=== PATIENT | male | born 1960 | race Hispanic/Latino ===

== ENCOUNTER 2017-11-19 15:46 | Emergency (ER) | payer SELFPAY ==
[~2017-11-19] VITALS: Ht 172.7 cm; Wt 108.9 kg
[~2017-11-19 15:46] MED LIST: AMLODIPINE BESYL5 MG PO; ATORVASTATIN CA20 MG PO; CARVEDILOL25 MG PO; CLOPIDOGREL75 MG PO; ELIQUIS PO; FUROSEMIDE40 MG PO; LEVEMIR100 UNIT/1 SQ; LOSARTAN POTASS25 MG PO; METHOCARBAMOL750 MG PO; NOVOLOG100 UNITS1 SQ; TRADJENTA5 MG PO
--- OUTSIDE RECORDS SUMMARY | 2017-11-19 15:49 | XMS REPORT ---
Author Author [facility] Address Unknown Phone Unavailable Care Team Providers Care Professor Of Architecture Name Role Phone Unavailable Unavailable Problems This patient has no known problems. Allergies, Adverse Reactions, Alerts This patient has no known allergies or adverse reactions. Medications This patient has no known medications. Encounters Start Date/Time End Date/Time Encounter Type Admission Type Attending [facility] Care Department Encounter ID 2017-07-09 00:00:00 2017-07-09 00:00:00 Outpatient [facility] [id number] 2017-06-28 00:00:00 2017-06-28 00:00:00 Outpatient [facility] [id number] 2017-06-22 00:00:00 2017-06-22 00:00:00 Outpatient [facility] [id number] 2017-06-15 00:00:00 2017-06-15 00:00:00 Outpatient [facility] [id number] 2017-06-14 09:20:42 2017-06-14 09:20:42 Outpatient [facility] [id number] 2017-06-14 07:55:26 2017-06-14 07:55:26 Outpatient [facility] [id number]
[2017-11-19 17:21] LABS: STREPTOCOCCUS GRP A ANTIGEN NEGATIVE (NEGATIVE)
[2017-11-19 17:38] LABS: INFLUENZAE A&B ANTIGEN (RAPID) NEGATIVE (NEGATIVE)
--- NOTE | 2017-11-19 18:04 | Diagnostic Imaging Report ---
PROCEDURE: Frontal and lateral views of the chest. COMPARISON: Chest radiograph 04/26/2017 INDICATIONS: COUGH, SHORTNESS OF BREATH FINDINGS: Lines/tubes: None. Lungs: The lungs are well inflated and clear. There is no evidence of pneumonia or pulmonary edema. Pleura: There is no pleural effusion or pneumothorax. Heart and mediastinum: The heart and the mediastinum are normal. Bones: No acute bony abnormality. Lower cervical fusion hardware. IMPRESSION: No acute cardiopulmonary disease. Dictated by: Lionel Monaco M.D. on 11/19/2017 at 18:03 Electronically approved by: Lionel Monaco M.D. on 11/19/2017 at 18:03
== END 2017-11-19 19:09 | disposition home or self-care (01) ==
LOC: ER 15:46
DX: R50.9 Fever, unspecified (principal); R05 Cough; J20.9 Acute bronchitis, unspecified; E11.9 Type 2 diabetes mellitus without complications; I51.9 Heart disease, unspecified
CPT/HCPCS: 71046; 83518; 87070; 87400; 99282

== ENCOUNTER 2018-11-28 14:34 | Inpatient (IN) | payer SELFPAY ==
[~2018-11-28] VITALS: Ht 172.7 cm; Wt 97.1 kg
[2018-11-28 15:18] LABS: INR 1.09; PROTHROMBIN TIME 14.6 seconds (11.9-14.5)
[2018-11-28 15:25] LABS: BASOPHILS % 0.1 % (0.0-1.0); EOSINOPHILS # (AUTO) 0.2 (0.0-0.4); EOSINOPHILS % 3.2 % (0.0-6.0); HEMATOCRIT 27.2 % (38.2-49.6); HEMOGLOBIN 9.2 g/dL (14.0-18.0); LYMPHOCYTES # (AUTO) 1.1 (1.0-3.2); LYMPHOCYTES % 15.1 % (18.0-39.1); MEAN CORPUSCULAR HEMOGLOBIN 28.8 pg (28-32); MEAN CORPUSCULAR HGB CONC 33.8 g/dL (31-35); MONOCYTES # (AUTO) 0.5 (0.2-0.8); MONOCYTES % 7.6 % (4.4-11.3); NEUTROPHILS # (AUTO) 5.1 (2.1-6.9); NEUTROPHILS % 73.4 % (38.7-80.0); PLATELET COUNT 163 x10e3/uL (140-360); RED CELL DISTRIBUTION WIDTH 14.2 % (11.7-14.4)
[2018-11-28 15:27] LABS: ALBUMIN 3.4 g/dL (3.5-5.0); ALBUMIN/GLOBULIN RATIO 1.1 (0.8-2.0); ANION GAP 13.6 mmol/L (8-16); CALCIUM 8.7 mg/dL (8.4-10.2); CREATININE, SERUM 5.75 mg/dL (0.72-1.25); POTASSIUM 4.6 mmol/L (3.5-5.1)
[2018-11-28] MEDS ORDERED: ASPIR 8181 MG PO (15:39)
[2018-11-28] MEDS ORDERED: VITAMIN D1000 UNI1 PO (15:39)
[2018-11-28] MEDS ORDERED: GLIPIZIDE5 MG PO (15:39)
[2018-11-28] MEDS ORDERED: SODIUM BICARBO650 MG PO (15:39)
--- NOTE | 2018-11-28 16:04 | Diagnostic Imaging Report ---
EXAM: CHEST 2 VIEWS, PA and lateral DATE: 11/28/2018 Time stamp on exam: 3:02 PM INDICATION: Shortness of breath COMPARISON: None FINDINGS: LINES/TUBES: None LUNGS: No consolidations or edema. PLEURA: No effusions or pneumothorax. HEART AND MEDIASTINUM: Normal size and contour. BONES AND SOFT TISSUES: Mild degenerative changes of the spine. Plate overlies the lower cervical spine. IMPRESSION: No acute thoracic abnormality. Signed by: Dr. Ronak Monique DO on 11/28/2018 4:01 PM
[2018-11-28 16:44] LABS: PARTIAL THROMBOPLASTIN TIME 33.2 seconds (23.8-35.5)
[2018-11-28 16:46] LABS: MAGNESIUM 2.1 MG/DL (1.3-2.1); PHOSPHORUS 4.9 MG/DL (2.3-4.7)
[2018-11-28] MEDS ORDERED: SODIUM CHLORIDE 0.9% 1000ML 1,000 ML IV SCH (17:11)
[2018-11-28] MEDS ORDERED: CLONIDINE HCL 0.1 MG TAB PO ONE (17:15)
[2018-11-28] MEDS ORDERED: ONDANSETRON HCL INJ 2MG/ML 2ML 2 MG/ML VIAL IV PRN (17:15)
[2018-11-28] MEDS ORDERED: SODIUM CHLORIDE FLUSH 10 ML SYR INJ PRN (17:15)
--- NOTE | 2018-11-28 19:00 | NUR ---
Received patient from ER and alert and responsive, VSS, Temp97.8, P65, [id number]% on 2L NC, BP-140/60, some SOB on exertion and call light within reach, report given to on coming nurs.
[2018-11-28] MEDS ORDERED: FUROSEMIDE INJ 10 MG/ML 4 ML VIAL IV NR (19:30)
--- NOTE | 2018-11-28 19:36 | NUR ---
BEDSIDE SHIFT REPORT RECEIVED FROM Brittani ROGERS RN. RECEIVED PT STANDING BY SIDE OF BED, AAOX3, RR EVEN AND NON-LABORED, ON RA. NO S/SX OF DISTRESS NOTED. LEFT PT SITTING ON SIDE OF BED, BED IN LOW LOCKED POSITION, SIDE RAILS UPX2, CALL LIGHT AND PHONE WITHIN REACH.
[2018-11-28 20:00] VITALS: BP 140/89
[2018-11-28 20:30] VITALS: BP 140/89
--- NOTE | 2018-11-28 20:50 | NUR ---
SPOKE WITH MD LAINEZ CONCERNING CONSULTATION. NEW ORDERS RECEIVED. SPOKE WITH MD YANCEY COVERING FOR SYED CONCERNING CONSULTATION AND ORDERS FOR IVF. NEW ORDERS RECEIVED. SPOKE WTASIA JARVIS N.P. CONCERNING NEW ORDERS RECEIVED FROM MIGEL AND ANALISA LYNCH TO FOLLOW THROUGH WITH ORDERS.
[2018-11-28] MEDS ORDERED: HYDRALAZINE HCL25 MG PO (21:04)
[2018-11-28] MEDS ORDERED: FERROUS SULFATE PO (21:04)
[2018-11-28] MEDS: CARVEDILOL 12.5 MG TAB PO SCH (21:41)
[2018-11-28] MEDS: HYDRALAZINE HCL 25 MG TAB PO SCH (21:41)
[2018-11-28] MEDS: SODIUM BICARBONATE 650 MG TAB PO SCH (21:41)
[2018-11-28] MEDS: ATORVASTATIN 20 MG TAB PO SCH (21:41)
[2018-11-28 21:55] VITALS: BP 140/89
[2018-11-29] VITALS (8 sets, daily range): BP systolic 112–149; BP diastolic 52–66
[2018-11-29 06:05] LABS: BASOPHILS % 0.4 % (0.0-1.0); EOSINOPHILS # (AUTO) 0.3 (0.0-0.4); EOSINOPHILS % 3.4 % (0.0-6.0); HEMATOCRIT 25.1 % (38.2-49.6); HEMOGLOBIN 8.4 g/dL (14.0-18.0); LYMPHOCYTES # (AUTO) 1.3 (1.0-3.2); LYMPHOCYTES % 17.4 % (18.0-39.1); MEAN CORPUSCULAR HEMOGLOBIN 28.7 pg (28-32); MEAN CORPUSCULAR HGB CONC 33.5 g/dL (31-35); MEAN CORPUSCULAR VOLUME 85.7 fL (81-99); MONOCYTES # (AUTO) 0.7 (0.2-0.8); MONOCYTES % 9.8 % (4.4-11.3); NEUTROPHILS % 68.6 % (38.7-80.0); PLATELET COUNT 144 x10e3/uL (140-360); RED BLOOD COUNT 2.93 x10e6/uL (4.3-5.7)
[2018-11-29 06:24] LABS: ALBUMIN 3.2 g/dL (3.5-5.0); ALBUMIN/GLOBULIN RATIO 1.1 (0.8-2.0); ANION GAP 13.7 mmol/L (8-16); CALCIUM 8.9 mg/dL (8.4-10.2); CREATININE, SERUM 5.73 mg/dL (0.72-1.25); PHOSPHORUS 5.4 MG/DL (2.3-4.7); POTASSIUM 4.7 mmol/L (3.5-5.1)
[2018-11-29 06:58] LABS: CHOL/HDL RATIO 2.6 (3.9-4.7)
--- NOTE | 2018-11-29 07:14 | NUR ---
Rcvd patient in report this am. Patient is asleep in bed at this time. No s/s of distress noted.
[2018-11-29] MEDS: CARVEDILOL 12.5 MG TAB PO SCH ×2 (09:00→20:46)
[2018-11-29] MEDS: ASPIRIN 81 MG CHEW TAB PO SCH (09:00)
[2018-11-29] MEDS: GLIPIZIDE 5 MG TAB PO SCH (09:00)
[2018-11-29] MEDS: HYDRALAZINE HCL 25 MG TAB PO SCH ×3 (09:00→20:38)
[2018-11-29] MEDS: FERROUS SULFATE 325 MG TAB PO SCH (09:01)
[2018-11-29] MEDS: SODIUM BICARBONATE 650 MG TAB PO SCH ×2 (09:01→17:06)
[2018-11-29] MEDS: CHOLECALCIFEROL 1,000 UNIT TAB PO SCH (09:01)
[2018-11-29] MEDS: AMLODIPINE BESYLATE 10 MG TAB PO SCH (09:01)
[2018-11-29] MEDS: CLOPIDOGREL BISULFATE 75 MG TAB PO SCH (09:01)
[2018-11-29] MEDS: FUROSEMIDE 40 MG TAB PO SCH ×3 (09:01→20:46)
--- NOTE | 2018-11-29 15:20 | Consultation ---
DATE OF CONSULTATION: 11/29/2018 Cardiology Consultation CONSULTING PHYSICIAN: Inocente Gentile M.D., Interventional Cardiology. REASON FOR CONSULTATION: Shortness of breath. HISTORY OF PRESENT ILLNESS: Mr. Valdez is a 58-year-old man with a history of hypertension, dyslipidemia, chronic kidney disease, diabetes mellitus type 2, morbid obesity and coronary artery disease status post prior PCI in 2016, who presents via the emergency department of [facility] with complaints of progressive worsening shortness of breath, orthopnea, leg edema and chest discomfort. Symptoms have been ongoing for various weeks and do worsen with exertion and with lying flat position. He was found on initial evaluation to have sinus rhythm with nonspecific repolarization abnormality on ECG, hypertension improved with initial medical therapy, and a creatinine of 5.7 with the patient reporting oliguria. Hemoglobin 8.4 and platelets 144 with a white count of 7.2. Renal has been consulted and they are evaluating the patient. His potassium is 4.7 and bicarbonate is 22. He is currently symptom free. REVIEW OF SYSTEMS: A 12-system review is negative except for as noted above. ALLERGIES: NO KNOWN DRUG ALLERGIES. PAST MEDICAL HISTORY: As per HPI. SOCIAL HISTORY: No active smoking, alcohol, or drugs. FAMILY HISTORY: Noncontributory. PHYSICAL EXAMINATION: VITAL SIGNS: Temperature 96 degrees, heart rate 62, blood pressure 138/64, respiratory rate 16, O2 saturation 100% with a BMI of 37.4. GENERAL: In no acute distress, alert. NECK: No JVD. CHEST: Clear to auscultation. CARDIOVASCULAR: Regular rate and rhythm. Normal S1 and S2. No S3 or S4. Systolic ejection murmur 2/6, best heard in the left lower sternal border. ABDOMEN: Soft and nontender. EXTREMITIES: Edema 1+ bilateral lower extremities. MEDICATIONS: Cardiovascular medications reviewed. Amlodipine 10 mg daily, clopidogrel 75 mg daily, carvedilol 25 mg every 12 hours, furosemide 40 mg t.i.d., hydralazine 50 mg t.i.d., ferrous sulfate 325 mg daily, atorvastatin 80 mg at bedtime, sodium bicarbonate 650 mg b.i.d. LABORATORY DATA: Studies reviewed. Sodium 138, potassium 4.7, chloride 107, bicarbonate 22, BUN 81, creatinine 5.7, glucose 102. White blood cells 7.2, hemoglobin 8.4, platelets 144. INR 1.09. AST 9, ALT 14, total bilirubin 0.4, alkaline phosphatase 100. ASSESSMENT: 1. Coronary artery disease, status post percutaneous coronary intervention in 2016 with angina pectoris. 2. Acute kidney injury on chronic kidney disease versus chronic kidney disease, stage 5. 3. Anemia. 4. Hyperlipidemia. 5. Hypertension. 6. Diabetes mellitus. 7. Morbid obesity. RECOMMENDATIONS: 1. Continue current antiplatelet therapy and antihypertensives as well as statin therapy. 2. Renal consultation advised and ongoing, trial of diuretics initiated. 3. Has preserved left ventricular systolic function with mild LVH on echocardiogram. Chest x-ray with no acute cardiopulmonary abnormalities reported. 4. [id number] diastolic heart failure. 5. For now medical management for CAD. If the patient declared end-stage renal disease, we will advise him coronary angiography to further evaluate articulate if symptoms persist after optimization of volume status and blood pressure. Thank you, Dr. Mcdonald for the opportunity to participate in the care of Mr. Valdez. MD KYUNG Salinas/MODL /[id number]
[2018-11-29] MEDS: ATORVASTATIN 20 MG TAB PO SCH (20:46)
[2018-11-30] VITALS (7 sets, daily range): BP systolic 139–149; BP diastolic 63–68
[2018-11-30] MEDS ORDERED: HYDRALAZINE HCL 20 MG/ML VIAL IV PRN (02:45)
[2018-11-30 06:16] LABS: BASOPHILS % 0.3 % (0.0-1.0); EOSINOPHILS # (AUTO) 0.2 (0.0-0.4); EOSINOPHILS % 3.3 % (0.0-6.0); HEMOGLOBIN 8.1 g/dL (14.0-18.0); LYMPHOCYTES % 15.4 % (18.0-39.1); MEAN CORPUSCULAR HEMOGLOBIN 29.1 pg (28-32); MEAN CORPUSCULAR HGB CONC 33.8 g/dL (31-35); MEAN CORPUSCULAR VOLUME 86.3 fL (81-99); MONOCYTES # (AUTO) 0.7 (0.2-0.8); MONOCYTES % 9.8 % (4.4-11.3); NEUTROPHILS # (AUTO) 4.7 (2.1-6.9); NEUTROPHILS % 70.7 % (38.7-80.0); PLATELET COUNT 127 x10e3/uL (140-360); RED BLOOD COUNT 2.78 x10e6/uL (4.3-5.7); RED CELL DISTRIBUTION WIDTH 14.1 % (11.7-14.4)
[2018-11-30 07:03] LABS: ALBUMIN/GLOBULIN RATIO 1.1 (0.8-2.0); ANION GAP 13.4 mmol/L (8-16); CALCIUM 8.4 mg/dL (8.4-10.2); CREATININE, SERUM 6.39 mg/dL (0.72-1.25); POTASSIUM 4.4 mmol/L (3.5-5.1)
--- NOTE | 2018-11-30 07:41 | NUR ---
Rcvd patient in report this am. Patient is asleep in bed at this time. No s/s of distress noted
[2018-11-30] MEDS: GLIPIZIDE 5 MG TAB PO SCH (08:37)
[2018-11-30] MEDS: FAMOTIDINE 20 MG TAB PO SCH ×2 (08:37→16:13)
[2018-11-30] MEDS: ASPIRIN 81 MG CHEW TAB PO SCH (08:37)
[2018-11-30] MEDS: HYDRALAZINE HCL 25 MG TAB PO SCH ×3 (08:37→21:37)
[2018-11-30] MEDS: CARVEDILOL 12.5 MG TAB PO SCH ×2 (08:38→21:37)
[2018-11-30] MEDS: FERROUS SULFATE 325 MG TAB PO SCH (08:38)
[2018-11-30] MEDS: CLOPIDOGREL BISULFATE 75 MG TAB PO SCH (08:38)
[2018-11-30] MEDS: SODIUM BICARBONATE 650 MG TAB PO SCH ×2 (08:38→16:13)
[2018-11-30] MEDS: FUROSEMIDE 40 MG TAB PO SCH ×3 (08:38→21:37)
[2018-11-30] MEDS: AMLODIPINE BESYLATE 10 MG TAB PO SCH (08:38)
[2018-11-30] MEDS: CHOLECALCIFEROL 1,000 UNIT TAB PO SCH (08:38)
--- NOTE | 2018-11-30 14:34 | NUR ---
SOCIAL WORK INITIAL ASSESSMENT Proj Mgr to bedside to discuss plan of care with patient/family. CM/SW role and care transitions discussed. Anticipated discharge plan discussed along with duration of care. CM/SW discussed patients right to make decisions in care. CM/SW work hours given. Patient lives: IN HOUSE WITH Admit/Transfer: VIA ED POA/Emergency contact: CYN CACERES [phone] Current/Previous Home Health: NONE PCP/Follow-up Care: MALENA Current/Previous DME: CAN Other Services: NONE Employment Status: LAID OFF NOV 07, 2018, UNEMPLOYMENT IS SUPPOSED TO START SOON Areas of Concerns: NEEDS TO BE ABLE TO WORK Referral Needs: DIALYSIS ? Education Needs: [facility] IMM/PALACIOS given and signed (if applicable): NA Goal for discharge: RETURN HOME CM/SW left business card at the bedside with contact information. Name and number was also written on the patients whiteboard. Patient verbalized understanding of discussion. CM will follow-up with ongoing discharge and transition of care needs. GAVE PACKET OF INFORMATION WITH COMMUNITY RESOURCES FOR ASSISTANCE WITH LOW TO NO INCOME TO PATIENT. RESOURCES THAT PATIENT MAY BE ABLE TO FOLLOW UP UPON DISCHARGE. PT EDUCATED ON EACH RESOURCE AND UNDERSTANDING HOW TO FOLLOW UP TO SEE IF QUALIFIED FOR EACH RESOURCE.
--- NOTE | 2018-11-30 14:45 | NUR ---
SPOKE WITH PATIENT ABOUT OPTIONS ABOUT POSSIBILITIES OF DATES AND TIMES IF HE NEEDS TO GET OUTPATIENT HD CHAIR SET UP, HE STATES THEY DOCTOR AND HE SPOKE ABOUT IT AND IF HE HAS A CHOICE HE WANTS , AND FRIDAYS AT 8 AM AND WILL GO WITH HIS DOCTOR HERE AT A LOCATION HE ATTENDS. HE GOES ON TO STATE HE WAS LAID OFF FROM HIS JOB A [employer] ON NOV 07, 2018 AND HAS APPLIED FOR UNEMPLOYMENT AND STATES THAT IS CONTINGENT UPON HIS BEING ABLE TO LOOK FOR WORK. HE STATES HE WOULD LIKE TO CONTINUE TO WORK IF POSSIBLE BUT WILL HAVE TO WAIT TO SEE IF HE IS ABLE TO CONTINUE WITH HIS HEALTH CARE PLAN. HE STATES HIS IS A STRONG SUPPORT SYSTEM.
--- NOTE | 2018-11-30 14:50 | NUR ---
GAVE PACKET OF INFORMATION WITH COMMUNITY RESOURCES FOR ASSISTANCE WITH LOW TO NO INCOME TO PATIENT. RESOURCES THAT PATIENT MAY BE ABLE TO FOLLOW UP UPON DISCHARGE. PT EDUCATED ON EACH RESOURCE AND UNDERSTANDING HOW TO FOLLOW UP TO SEE IF QUALIFIED FOR EACH RESOURCE.
[2018-11-30 17:53] LABS: CREATININE,URINE RANDOM 77.89 mg/dL (63-166)
[2018-11-30 20:39] LABS: TOTAL PROTEIN, URINE 211.3 mg/dL (1-14)
[2018-11-30] MEDS: ATORVASTATIN 20 MG TAB PO SCH (21:37)
[2018-12-01] VITALS (7 sets, daily range): BP systolic 120–163; BP diastolic 60–68
[2018-12-01 06:03] LABS: BASOPHILS % 0.3 % (0.0-1.0); EOSINOPHILS # (AUTO) 0.2 (0.0-0.4); EOSINOPHILS % 2.9 % (0.0-6.0); HEMATOCRIT 22.4 % (38.2-49.6); HEMOGLOBIN 7.6 g/dL (14.0-18.0); LYMPHOCYTES # (AUTO) 0.9 (1.0-3.2); LYMPHOCYTES % 15.3 % (18.0-39.1); MEAN CORPUSCULAR HGB CONC 33.9 g/dL (31-35); MEAN CORPUSCULAR VOLUME 85.5 fL (81-99); MONOCYTES # (AUTO) 0.6 (0.2-0.8); MONOCYTES % 9.8 % (4.4-11.3); NEUTROPHILS # (AUTO) 4.2 (2.1-6.9); NEUTROPHILS % 71.2 % (38.7-80.0); PLATELET COUNT 128 x10e3/uL (140-360); RED BLOOD COUNT 2.62 x10e6/uL (4.3-5.7); RED CELL DISTRIBUTION WIDTH 13.9 % (11.7-14.4)
[2018-12-01 06:25] LABS: ALBUMIN/GLOBULIN RATIO 1.2 (0.8-2.0); ANION GAP 12.5 mmol/L (8-16); CALCIUM 8.5 mg/dL (8.4-10.2); CREATININE, SERUM 6.62 mg/dL (0.72-1.25); POTASSIUM 4.5 mmol/L (3.5-5.1)
--- NOTE | 2018-12-01 06:26 | NUR ---
SPOKE TO DR. EDGE AT THIS TIME REGARDING PT HGB 7.6. NO NEW ORDER.
--- NOTE | 2018-12-01 07:19 | NUR ---
Rcvd patient in report this am. patient is asleep in bed at this time. No s/s of distress noted
--- NOTE | 2018-12-01 08:28 | Progress Note ---
DATE: 11/30/2018 Cardiology Progress Note SUBJECTIVE: Denies chest pain or shortness of breath. Edema improving. Undergoing discussions with Nephrology for possible dialysis, pending creatinine clearance. OBJECTIVE: VITAL SIGNS: Temperature 96.6, heart rate 70, blood pressure 148/67, respiratory rate 20, O2 saturation 99%. GENERAL: In no acute distress. Alert. NECK: No JVD. CHEST: Clear to auscultation. CARDIOVASCULAR: Regular rate and rhythm. Normal S1 and S2. No S3 or S4. ABDOMEN: Soft, nontender. EXTREMITIES: Trace edema, bilateral lower extremities. MEDICATIONS: Cardiovascular medications reviewed. 1. Aspirin 81 mg daily. 2. Amlodipine daily. 3. Clopidogrel 75 mg daily. 4. Carvedilol 25 mg every 12 hours. 5. Hydralazine 50 mg t.i.d. 6. Furosemide 40 mg t.i.d. 7. Ferrous sulfate 325 mg daily. 8. Atorvastatin 80 mg at bedtime. 9. Hydralazine q.4 hours as needed. LABORATORY DATA: Sodium 138, potassium 4.4, chloride 107, bicarbonate 22, BUN 81, creatinine 6.39, glucose 108. White blood cells 6.6, hemoglobin 8.1, platelets 127. INR 1.09. AST 11, ALT 16, alkaline phosphatase 93, total bilirubin 0.4. ASSESSMENT: 1. Chronic kidney disease 5. 2. Hypertension. 3. Dyslipidemia. 4. Anemia. 5. Coronary artery disease with prior history of PCI. 6. Morbid obesity. RECOMMENDATIONS: Await discussions with regard to his renal status pending anemia evaluation. Consider coronary angiography given presentation with angina-type symptoms, although this could be related to his renal failure, volume overload, and acute diastolic heart failure. Differential includes unstable angina pectoris. This has been discussed with the patient. For now, continue rest of the cardiovascular medications. MD KYUNG Salinas/JUSTIN /[id number] MTDD
[2018-12-01] MEDS: SODIUM BICARBONATE 650 MG TAB PO SCH ×2 (08:59→17:31)
[2018-12-01] MEDS: FAMOTIDINE 20 MG TAB PO SCH ×2 (08:59→17:31)
[2018-12-01] MEDS: CLOPIDOGREL BISULFATE 75 MG TAB PO SCH (08:59)
[2018-12-01] MEDS: CHOLECALCIFEROL 1,000 UNIT TAB PO SCH (08:59)
[2018-12-01] MEDS: FERROUS SULFATE 325 MG TAB PO SCH (08:59)
[2018-12-01] MEDS: GLIPIZIDE 5 MG TAB PO SCH (08:59)
[2018-12-01] MEDS: CARVEDILOL 12.5 MG TAB PO SCH ×2 (08:59→21:01)
[2018-12-01] MEDS: ASPIRIN 81 MG CHEW TAB PO SCH (08:59)
[2018-12-01] MEDS: HYDRALAZINE HCL 25 MG TAB PO SCH ×3 (08:59→21:01)
[2018-12-01] MEDS: AMLODIPINE BESYLATE 10 MG TAB PO SCH (08:59)
[2018-12-01] MEDS: FUROSEMIDE 40 MG TAB PO SCH (08:59)
--- NOTE | 2018-12-01 09:25 | NUR ---
Call placed to Dr. Mcdonald for new orders. Patient c/o congestion and would like some medication.
--- NOTE | 2018-12-01 11:35 | NUR ---
Patient is AAOx3. patient lung michelle clear to auscultation. Bowel sounds present x4. 2+ edema noted to BLE. Shortness of breath on exertion. Patient on room air at this time. Some shortness of breath at rest today d/t congestion. Awaiting new orders at this time. No further s/s of distress noted
[2018-12-01] MEDS: FLUTICASONE PROPIONATE NASAL SPRAY NS SCH ×2 (12:53→17:31)
[2018-12-01] MEDS ORDERED: LACTULOSE SYRUP 20 GM/30 ML UDC PO PRN (14:00)
[2018-12-01] MEDS ORDERED: POLYETHYLENE GLYCOL 3350 17 GM PACK PO PRN (14:00)
[2018-12-01] MEDS: DOCUSATE SODIUM 100 MG CAP PO SCH (17:31)
--- NOTE | 2018-12-01 19:51 | NUR ---
SPOKE TO YAIMA AT THIS TIME REGARDING PT C/O BACK PAIN 03/03. NEW ORDER RCV FOR NORCO PRN
[2018-12-01] MEDS: HYDROCODONE/APAP 5MG-325MG TAB PO PRN (20:10)
[2018-12-01] MEDS: ATORVASTATIN 20 MG TAB PO SCH (21:00)
[2018-12-02] VITALS (8 sets, daily range): BP systolic 100–162; BP diastolic 46–75
--- NOTE | 2018-12-02 02:27 | Progress Note ---
DATE: 12/01/2018 CARDIOLOGY PROGRESS NOTE SUBJECTIVE: Denies any chest pain or shortness of breath. PHYSICAL EXAMINATION: VITAL SIGNS: Temperature 97 degrees, heart rate 64, blood pressure 146/64, respiratory rate 20, O2 sat 98%. BMI is 36. GENERAL: No acute distress, alert. NECK: No JVD. CHEST: Clear to auscultation. CARDIOVASCULAR: Regular rate and rhythm. Normal S1 and S2. ABDOMEN: Soft, nontender, systolic ejection murmur. EXTREMITIES: Trace edema. MEDICATIONS: Cardiovascular medications: 1. Amlodipine 10 mg daily. 2. Clopidogrel 75 mg daily. 3. Ferrous sulphate 325 mg daily. 4. Atorvastatin 80 mg at bedtime. 5. Hydralazine 10 mg every 4 hours. 6. Carvedilol 25 mg every 12 hours. LABORATORY DATA: Studies reviewed. Sodium 134, potassium 4.5, chloride 104, bicarbonate 22, BUN 82, creatinine 6.6, glucose 131. White blood cells 5.8, hemoglobin 7.6, platelets 128. INR 1.09. AST 10, ALT 16. ASSESSMENT: 1. Coronary artery disease with prior coronary stents with angina pectoris. 2. End-stage renal disease. 3. Volume overload. 4. Diabetes mellitus. 5. Hypertension. 6. Morbid obesity. 7. Dyslipidemia. 8. Anemia. RECOMMENDATIONS: 1. Chronic kidney disease 5 versus end-stage renal disease, undergoing evaluation by Nephrology, possible catheter placement tomorrow for initiation of dialysis per the patient's account. We will confirm with estimator and drafter's plan of care. 2. Anemia, workup advised. 3. Continue current cardiovascular medications. 4. Assess response to volume optimization by Nephrology. If symptoms of dyspnea on exertion and chest discomfort with exertion persist, invasive coronary evaluation has been discussed and advised the patient. If otherwise symptoms resolve, consider stress test for further risk stratification at a later date. MD KYUNG Salinas/JUSTIN /[id number]
[2018-12-02] MEDS: GLIPIZIDE 5 MG TAB PO SCH (07:30)
[2018-12-02] MEDS: FAMOTIDINE 20 MG TAB PO SCH ×2 (07:30→17:32)
[2018-12-02 07:46] LABS: ALBUMIN 3.6 g/dL (3.5-5.0); ALBUMIN/GLOBULIN RATIO 1.2 (0.8-2.0); ANION GAP 14.4 mmol/L (8-16); CALCIUM 9.1 mg/dL (8.4-10.2); CREATININE, SERUM 6.69 mg/dL (0.72-1.25); POTASSIUM 4.4 mmol/L (3.5-5.1)
[2018-12-02] MEDS: SODIUM BICARBONATE 650 MG TAB PO SCH ×2 (09:00→17:32)
[2018-12-02] MEDS: ASPIRIN 81 MG CHEW TAB PO SCH (09:00)
[2018-12-02] MEDS: HYDRALAZINE HCL 25 MG TAB PO SCH ×3 (09:00→22:30)
[2018-12-02] MEDS: DOCUSATE SODIUM 100 MG CAP PO SCH ×2 (09:00→17:32)
[2018-12-02] MEDS: FERROUS SULFATE 325 MG TAB PO SCH (09:00)
[2018-12-02] MEDS: CLOPIDOGREL BISULFATE 75 MG TAB PO SCH (09:00)
[2018-12-02] MEDS: CHOLECALCIFEROL 1,000 UNIT TAB PO SCH (09:00)
[2018-12-02] MEDS: AMLODIPINE BESYLATE 10 MG TAB PO SCH (09:00)
[2018-12-02] MEDS: CARVEDILOL 12.5 MG TAB PO SCH ×2 (09:00→22:30)
--- NOTE | 2018-12-02 09:00 | NUR ---
patient alert and responsive, held Plavix this morning due to procedure
[2018-12-02] MEDS: FLUTICASONE PROPIONATE NASAL SPRAY NS SCH ×2 (10:02→17:32)
[2018-12-02 10:22] LABS: BASOPHILS % 0.3 % (0.0-1.0); EOSINOPHILS # (AUTO) 0.2 (0.0-0.4); EOSINOPHILS % 3.2 % (0.0-6.0); HEMATOCRIT 24.9 % (38.2-49.6); HEMOGLOBIN 8.4 g/dL (14.0-18.0); LYMPHOCYTES # (AUTO) 1.1 (1.0-3.2); LYMPHOCYTES % 16.7 % (18.0-39.1); MEAN CORPUSCULAR HEMOGLOBIN 28.9 pg (28-32); MEAN CORPUSCULAR HGB CONC 33.7 g/dL (31-35); MEAN CORPUSCULAR VOLUME 85.6 fL (81-99); MONOCYTES # (AUTO) 0.6 (0.2-0.8); NEUTROPHILS # (AUTO) 4.8 (2.1-6.9); NEUTROPHILS % 70.4 % (38.7-80.0); PLATELET COUNT 133 x10e3/uL (140-360); RED BLOOD COUNT 2.91 x10e6/uL (4.3-5.7); RED CELL DISTRIBUTION WIDTH 14.1 % (11.7-14.4)
--- NOTE | 2018-12-02 10:49 | NUR ---
Call from IR stating patient cannot do tunnelled cath today due to Plavix usage and will need to be off plavix for 5 days. Nephrology and CV notified.
--- NOTE | 2018-12-02 10:59 | NUR ---
Dr. Hamilton notified of plavix and orders to hold plavix and reschedule procedure for by Dr. Blas
--- NOTE | 2018-12-02 14:28 | Progress Note ---
DATE: 12/02/2018 SUBJECTIVE: Denies chest pain or shortness of breath today. Scheduled for a catheter placement later this afternoon, followed by dialysis at a later time. OBJECTIVE: VITAL SIGNS: Temperature 96.6, heart rate 65, respiratory rate 16, blood pressure 165/75, O2 saturation 97% on room air. GENERAL: In no acute distress, alert. NECK: No JVD. CHEST: Clear to auscultation. CARDIOVASCULAR: Regular rate and rhythm. Normal S1 and S2. No S3 or S4. ABDOMEN: Soft. EXTREMITIES: Trace edema. MEDICATIONS: Cardiovascular medications reviewed. Carvedilol 25 mg every 12 hours, hydralazine 50 mg t.i.d., amlodipine 10 mg daily, atorvastatin 80 mg at bedtime, ferrous sulfate 325 mg daily, clopidogrel 75 mg daily, aspirin 81 mg daily. STUDIES: White blood cells 6.7, hemoglobin 8.4, platelets of 133. Sodium 137, potassium 4.4, chloride 105, bicarbonate 22, BUN 78, creatinine 6.69, glucose 106, calcium 9.1, AST 11, ALT 15, alkaline phosphatase 109, total bilirubin 0.6, total protein 6.5, albumin 3.6. Stool occult blood negative. On telemetry, in sinus rhythm. ASSESSMENT: 1. Coronary artery disease with prior coronary stents with angina pectoris. 2. End-stage renal disease. 3. Volume overload. 4. Diabetes mellitus. 5. Hypertension. 6. Morbid obesity. 7. Dyslipidemia. 8. Anemia. RECOMMENDATIONS: 1. Catheter placement for dialysis planned for today. 2. Volume management per Nephrology. 3. Continue current cardiovascular medications. 4. Anemia workup undergoing has negative fecal occult blood test. 5. Depending on response to dialysis from a symptomatic standpoint if symptoms concerning for angina pectoris persist and once declared ESRD and volume status optimized, can consider coronary invasive evaluation. If symptoms resolve, consider stress test. MD KYUNG Salinas/MODL /[id number]
--- NOTE | 2018-12-02 16:00 | NUR ---
bedside report received from Olivia Gomez RN. Alert oriented and appropriate, PERRLA, respirations even and unlabored to room air. Sitting up in nicki with family in room. Cap fill brisk < 3 sec. Skin warm and dry integrity appears intact on telemetry. IV 20g to right AC area presents healthy w/o s/s of infiltration or complaint. Abdomen soft and supple. pt offered toileting, denies need to urinate or defecate. No personal affects with patient aside of undergarments. Family at bedside. Pt and family verbalizes understanding of POC. Pre-Op Meds - NA. Patient transferred from [facility] by microbiological laboratory technician escort by Wheelchair, telemetry pack present. Currently w/o complaint of pain or need. Patient introduced to cath team and brief summary provided to team. Transferred to procedure table under own strength w/o duress using step stool. Patient secured to procedural table and patient prepped in usual fashion for right IJ temporary dialysis cath procedure. Hypercapnia monitoring present and unavailable. -cgf
--- NOTE | 2018-12-02 16:01 | NUR ---
Patient picked up at this time for placement of temporary IJ cath for dialysis
[2018-12-02] MEDS ORDERED: HEPARIN SOD (PORCINE) 1000 UNIT/ML 30ML ONE (16:27)
[2018-12-02] MEDS ORDERED: SODIUM CHLORIDE 0.9% 500ML 1,000 ML ONE (16:28)
[2018-12-02] MEDS ORDERED: MIDAZOLAM HCL 2 MG/2 ML VIAL ONE (16:28)
[2018-12-02] MEDS ORDERED: LIDOCAINE HCL 2% LOCAL 20 ML VIAL ONE (16:28)
[2018-12-02] MEDS ORDERED: FENTANYL CITRATE/PF 100MCG/2 ML INJ ONE (16:28)
--- NOTE | 2018-12-02 17:15 | NUR ---
Report provided to Olivia Gomez RN, review of procedural findings and medications given. Patient awake, alert , appropriate. maintains airway and room air saturations of 98-99%. No gross issues of pressure, pain, pallor or dysrhythmia. IV site saline locked, healthy. patient hemodynamically stable with hemostasis right neck of temporary dialysis catheter. CDI w/o s/s of bleeding. patient transferred to [facility] under own strength w/o incident. transported to [address] [place] [address] procedure: Insertion of temporary dialysis catheter 12fr 20cm Meds Given Intra-Procedure Sedatives Versed - 2 mg Fentanyl - 50 mcg Anticoagulants Heparin - 1000 Units per port site by Dr. Monique Fluids Input - 80 ml Output - dtv
--- NOTE | 2018-12-02 17:20 | NUR ---
Patient returned from [facility] and RIJ 12 FR 20CM placed today and no bleeding noted, dressing intact.
[2018-12-02] MEDS ORDERED: SODIUM CHLORIDE 0.9% 250ML 500 ML IV PRN (18:45)
[2018-12-02] MEDS ORDERED: HEPARIN SOD (PORCINE) 1000 UNIT/ML SDV IV PRN (18:45)
[2018-12-02] MEDS ORDERED: MANNITOL 25% 12.5GM/50 ML VIAL IV PRN (18:45)
[2018-12-02] MEDS ORDERED: SODIUM CHLORIDE 0.9% 1000ML 2,000 ML IV PRN (18:45)
--- NOTE | 2018-12-02 19:11 | NUR ---
Patient starting dialysis at this time, Rounds completed and report given to on coming nurse.
--- NOTE | 2018-12-02 19:30 | NUR ---
CONSULTATION TO DR. MOON PER DR. LYNCH DONE BY TELEVISION JOURNALIST. WAITING FOR CALL BACK.
--- NOTE | 2018-12-02 19:31 | NUR ---
CORRECTION FOR PREVIOUS ENTRY. DR. CHASE ORDERED CONSULTATION FOR DR. MOON.
--- NOTE | 2018-12-02 20:30 | NUR ---
NO CALL BACK FROM DR. MOON.
[2018-12-02] MEDS: ATORVASTATIN 40 MG TAB PO SCH (22:30)
[2018-12-03] VITALS (8 sets, daily range): BP systolic 134–155; BP diastolic 63–69
[2018-12-03] MEDS: HYDROCODONE/APAP 5MG-325MG TAB PO PRN ×2 (00:12→21:31)
[2018-12-03] MEDS: ZOLPIDEM TARTRATE 5 MG TAB PO PRN ×2 (00:12→21:32)
[2018-12-03 03:56] LABS: BASOPHILS % 0.3 % (0.0-1.0); EOSINOPHILS # (AUTO) 0.2 (0.0-0.4); EOSINOPHILS % 2.7 % (0.0-6.0); HEMATOCRIT 23.4 % (38.2-49.6); HEMOGLOBIN 8.1 g/dL (14.0-18.0); LYMPHOCYTES # (AUTO) 0.9 (1.0-3.2); LYMPHOCYTES % 15.2 % (18.0-39.1); MEAN CORPUSCULAR HEMOGLOBIN 29.2 pg (28-32); MEAN CORPUSCULAR HGB CONC 34.6 g/dL (31-35); MEAN CORPUSCULAR VOLUME 84.5 fL (81-99); MONOCYTES # (AUTO) 0.6 (0.2-0.8); MONOCYTES % 10.5 % (4.4-11.3); NEUTROPHILS # (AUTO) 4.2 (2.1-6.9); PLATELET COUNT 136 x10e3/uL (140-360); RED BLOOD COUNT 2.77 x10e6/uL (4.3-5.7); RED CELL DISTRIBUTION WIDTH 13.8 % (11.7-14.4)
--- NOTE | 2018-12-03 06:09 | NUR ---
RACHELD DR. MOON FOR CONSULTATION.
--- NOTE | 2018-12-03 06:37 | NUR ---
NO CALL BACK FROM DR. MOON.
[2018-12-03 06:46] LABS: ANION GAP 12.2 mmol/L (8-16); CALCIUM 7.9 mg/dL (8.4-10.2); CREATININE, SERUM 5.34 mg/dL (0.72-1.25); MAGNESIUM 2.1 MG/DL (1.3-2.1); POTASSIUM 4.2 mmol/L (3.5-5.1)
[2018-12-03] MEDS: FLUTICASONE PROPIONATE NASAL SPRAY NS SCH ×2 (09:11→16:36)
[2018-12-03] MEDS: DOCUSATE SODIUM 100 MG CAP PO SCH ×2 (09:11→16:36)
[2018-12-03] MEDS: FERROUS SULFATE 325 MG TAB PO SCH (09:11)
[2018-12-03] MEDS: FAMOTIDINE 20 MG TAB PO SCH ×2 (09:11→18:03)
[2018-12-03] MEDS: HYDRALAZINE HCL 25 MG TAB PO SCH ×3 (09:11→21:28)
[2018-12-03] MEDS: SODIUM BICARBONATE 650 MG TAB PO SCH ×2 (09:11→16:36)
[2018-12-03] MEDS: CARVEDILOL 12.5 MG TAB PO SCH ×2 (09:11→21:28)
[2018-12-03] MEDS: ASPIRIN 81 MG CHEW TAB PO SCH (09:11)
[2018-12-03] MEDS: GLIPIZIDE 5 MG TAB PO SCH (09:11)
[2018-12-03] MEDS: CHOLECALCIFEROL 1,000 UNIT TAB PO SCH (09:11)
[2018-12-03] MEDS: AMLODIPINE BESYLATE 10 MG TAB PO SCH (09:12)
--- NOTE | 2018-12-03 15:00 | NUR ---
Call to Dr. Shahid's service to inform on consult for AVF and waiting for call back
--- NOTE | 2018-12-03 15:45 | NUR ---
Patient started dialysis at this time, tolerating well.
--- NOTE | 2018-12-03 16:16 | NUR ---
Nutrition Screen Note RD Recommendation for Physician: -Continue renal diabetic diet as ordered -Pt requested RD to return for diet education. Plan of Care: RD following, monitoring for tolerance and adequacy, diet education Nutrition reason for involvement: Diagnosis New ESRD on HD Primary Diagnose(s): 1. Coronary artery disease with prior coronary stents with angina pectoris. 2. End-stage renal disease. 3. Volume overload. PMH: hypertension, dyslipidemia, chronic kidney disease, diabetes mellitus type 2, morbid obesity and coronary artery disease Ht: 68in Wt: 181.19lb BMI: 27.5kg/m2 IBW: 154lb RD Assessment: (12/03) Chart reviewed. Labs and meds reviewed. 58yo M, who was admitted for SOB. Pt had dialysis catheter placed on 12/02. Last HD was on 12/02. HbA1c at 5.4%. Glucose 90 185. Visited pt in the room. Pt reported fair appetite. Pt ate 100% of his lunch during my visit. No GI complains noted. LBM 12/03. Pt denied any chewing or swallowing difficulty. No recent weight loss reported. Will return tomorrow AM for diet education. Current Diet: renal/ diabetic Malnutrition Evaluation (12/03) The patient does not meet criteria for a specified degree of malnutrition at this time. Will re-evaluate at follow-up as appropriate. Diet Education Needs Assessment: Diet education indicated, pt requested RD to come back when is present. Nutrition Care Level: low Signed: Ayesha Diane, , RD, LD
--- NOTE | 2018-12-03 16:30 | Progress Note ---
DATE: 12/03/2018 Cardiology Progress Note SUBJECTIVE: Short of breath today, status post ultrafiltration yesterday. No current complaints. OBJECTIVE: VITAL SIGNS: Temperature 96.9, heart rate 71, blood pressure 151/69, respiratory rate 18, heart rate 71, and O2 saturation 97% on room air. GENERAL: In no acute distress, alert. NECK: No JVD. CHEST: Clear to auscultation. CARDIOVASCULAR: Regular rate and rhythm. Normal S1, S2. ABDOMEN: Soft. EXTREMITIES: Trace edema. CARDIOVASCULAR MEDICATIONS: Amlodipine 10 mg daily, ferrous sulfate 325 mg daily, carvedilol 25 mg every 12 hours, hydralazine 50 mg t.i.d., aspirin 81 mg daily, and atorvastatin 80 mg at bedtime. LABORATORY DATA: White blood cells 5.9, hemoglobin 8.1, and platelets 136. Sodium 138, potassium 4.2, chloride 106, bicarbonate 24, BUN 57, creatinine 5.3, and glucose 91. ASSESSMENT: 1. Coronary artery disease, status post coronary stents with angina pectoris. 2. End-stage renal disease. 3. Volume overload. 4. Diabetes mellitus. 5. Hypertension. 6. Morbid obesity. 7. Dyslipidemia. 8. Anemia. RECOMMENDATIONS: 1. Undergoing dialysis and volume optimization per Nephrology. 2. Continue current cardiovascular medications. 3. Anemia workup ongoing. 4. Depending on response to dialysis initiation, consider further coronary workup. MD KYUNG Salinas/JUSTIN /[id number]
--- NOTE | 2018-12-03 20:00 | NUR ---
Patient tolerated dialysis, vital signs within normal limits. 3l of fluid was pulled.
--- NOTE | 2018-12-03 20:05 | NUR ---
CORRECTED NOTED FROM PREVIOUS ENTRY. PULLED 2 L OF FLUID DURING DIALYSIS.
[2018-12-03] MEDS: ATORVASTATIN 40 MG TAB PO SCH (21:28)
[2018-12-04] VITALS (8 sets, daily range): BP systolic 125–154; BP diastolic 58–72
[2018-12-04 03:20] LABS: BASOPHILS % 0.3 % (0.0-1.0); EOSINOPHILS # (AUTO) 0.2 (0.0-0.4); EOSINOPHILS % 3.2 % (0.0-6.0); HEMATOCRIT 24.5 % (38.2-49.6); HEMOGLOBIN 8.4 g/dL (14.0-18.0); LYMPHOCYTES % 16.1 % (18.0-39.1); MEAN CORPUSCULAR HEMOGLOBIN 28.9 pg (28-32); MEAN CORPUSCULAR HGB CONC 34.3 g/dL (31-35); MEAN CORPUSCULAR VOLUME 84.2 fL (81-99); MONOCYTES # (AUTO) 0.7 (0.2-0.8); MONOCYTES % 12.4 % (4.4-11.3); NEUTROPHILS % 67.8 % (38.7-80.0); PLATELET COUNT 144 x10e3/uL (140-360); RED BLOOD COUNT 2.91 x10e6/uL (4.3-5.7); RED CELL DISTRIBUTION WIDTH 13.9 % (11.7-14.4)
[2018-12-04 03:29] LABS: ANION GAP 10.9 mmol/L (8-16); CREATININE, SERUM 4.08 mg/dL (0.72-1.25); MAGNESIUM 2.1 MG/DL (1.3-2.1); POTASSIUM 3.9 mmol/L (3.5-5.1)
--- NOTE | 2018-12-04 07:15 | NUR ---
PT RESTING IN BED AA0X3. PT IS AMBULATORY WITHOUT ASSIST. PT IS IN NO PAIN. PT HAS A RIGHT AC 20 SL AND RIGHT UPPER CHEST NON TUNNELED CATH DRY AND INTACT USED FOR HD. PT IS SCHEDULED FOR HD TODAY. WILL HOLD BP MED PER PROTOCOL THIS AM. PT IS ON TELEMETRY MONITORING RUNNING SR. PT IS ON RA TOLERATING WELL. PT AWARE OF PLAN OF CARE TODAY (QUESTIONS ABOUT POSSIBLE PERITONEAL ACCESS VS AV FISTULA) INSTRUCTED PT TO MENTION THIS TO MD CHASE ONCE AGAIN TO GET A BETTER RESPONSE. PT UNDERSTANDS. WILL CONTINUE TO MONITOR PT AT THIS TIME, SIDE RAILSX2, BED WHEELS LOCKED, CALL LIGHT IS WITHIN EASY REACH, INSTRUCTED TO CALL IF NEEDING ASSISTANCE
[2018-12-04] MEDS ORDERED: AMLODIPINE BESYLATE 10 MG TAB PO SCH (09:00)
[2018-12-04] MEDS: FLUTICASONE PROPIONATE NASAL SPRAY NS SCH ×2 (09:00→17:00)
[2018-12-04] MEDS: HYDRALAZINE HCL 25 MG TAB PO SCH ×3 (09:00→20:25)
--- NOTE | 2018-12-04 09:00 | NUR ---
SPOKE WITH IR REGARDING ASPIRIN ADMINISTRATION. STATES TO HOLD. CHANGED EMAR ASPIRIN TO HOLD STATUS
[2018-12-04] MEDS: DOCUSATE SODIUM 100 MG CAP PO SCH ×2 (09:13→18:05)
[2018-12-04] MEDS: SODIUM BICARBONATE 650 MG TAB PO SCH ×2 (09:13→18:05)
[2018-12-04] MEDS: FERROUS SULFATE 325 MG TAB PO SCH (09:13)
[2018-12-04] MEDS: CHOLECALCIFEROL 1,000 UNIT TAB PO SCH (09:13)
--- NOTE | 2018-12-04 09:30 | NUR ---
HD NURSE HERE TO START PT TREATMENT
[2018-12-04] MEDS: CARVEDILOL 12.5 MG TAB PO SCH ×2 (09:34→20:25)
[2018-12-04] MEDS: FAMOTIDINE 20 MG TAB PO SCH ×2 (09:34→18:05)
[2018-12-04] MEDS: GLIPIZIDE 5 MG TAB PO SCH (09:34)
--- NOTE | 2018-12-04 10:47 | NUR ---
PER REQUEST WENT TO SPEAK WITH PATIENT AND TOLD HIM THAT I WAS WAITING ON ORDERS TO GET DIALYSIS CHAIR SET, HE ASKED ABOUT PD VERSES HD, WHEN I BEGAN TO EDUCATE HE STATES DR MATHEW ALREADY TOLD HIM THE SAME THING, SO ADVISED THAT I AM UNFORTUNATELY ABLE TO MOVE FORWARD UNTIL I GET AN ORDER. BUT WILL UPDATE SOON I KNOW.
--- NOTE | 2018-12-04 15:39 | NUR ---
hd complete. pt is aa0x3 , resting in bed bp reads 134/65 with hr of 60. 3L removed
--- NOTE | 2018-12-04 16:16 | NUR ---
pt c/o of h/a . new orders for tylenol received
--- NOTE | 2018-12-04 16:17 | NUR ---
spoke with md walker regarding pt wanting peritoneal vs avf. states pt will receive this outpatient asked md walker whether pt still needed to be seen by md myles . states is aware and will see pt during admission
--- NOTE | 2018-12-04 16:19 | NUR ---
CM SPOKE TO DR. QUINCY MD REQUESTING [facility] FOR HD PLACEMENT
[2018-12-04] MEDS ORDERED: EPOETIN ALFA 10000 UNIT/ML VIAL SC ONE (16:30)
[2018-12-04] MEDS: ACETAMINOPHEN 325 MG TAB PO PRN (16:32)
--- NOTE | 2018-12-04 17:33 | NUR ---
pt signed consent for tunnelled cath scheduled for tomorrow
[2018-12-04] MEDS: AMLODIPINE BESYLATE 10 MG TAB PO SCH (18:05)
--- NOTE | 2018-12-04 19:06 | NUR ---
Follow-up Note RD Recommendation for Physician: - Continue renal diabetic diet as ordered - RD provided diet education on 12/04. Plan of Care: RD following, monitoring for tolerance and adequacy, diet education Nutrition reason for involvement: Return for diet education Primary Diagnose(s): 1. Coronary artery disease with prior coronary stents with angina pectoris. 2. End-stage renal disease. 3. Volume overload. PMH: hypertension, dyslipidemia, chronic kidney disease, diabetes mellitus type 2, morbid obesity and coronary artery disease Ht: 68in Wt: 181.19lb; 226lb BMI: 27.5kg/m2 IBW: 154lb RD Assessment: (12/04) RD returned for diet education with on bedside. Pt was undergoing HD during my visit. Pt reported good appetite. No GI complains noted. (12/03) Chart reviewed. Labs and meds reviewed. 58yo M, who was admitted for SOB. Pt had dialysis catheter placed on 12/02. Last HD was on 12/02. HbA1c at 5.4%. Glucose 90 185. Visited pt in the room. Pt reported fair appetite. Pt ate 100% of his lunch during my visit. No GI complains noted. LBM 12/03. Pt denied any chewing or swallowing difficulty. No recent weight loss reported. Will return tomorrow AM for diet education. Current Diet: renal/ diabetic Malnutrition Evaluation (12/03) The patient does not meet criteria for a specified degree of malnutrition at this time. Will re-evaluate at follow-up as appropriate. Diet Education Needs Assessment: Diet education indicated, pt and were agreeable with plan. Learner(s): pt and Time spent: 30minutes Barriers: No barriers identified. Cultural/Language Modifications: No cultural/language modifications noted. Pt and speak Mongolian. Readiness: Pt eager to learn. Method: Handouts, explanation Topics: Nutrition guidelines for HD, potassium and phosphorus Understanding/Compliance: Expect good understanding/compliance from pt. Will benefit from reinforcement. All questions have been answered. Nutrition Care Level: low Signed: Ayesha Diane, , RD, LD
--- NOTE | 2018-12-04 19:47 | NUR ---
SPOKE TO CECY COLUNGA REGARDING PRN AMBIEN. NEW ORDER RCV TO INCREASE DOSE FROM 5MG TO 10MG.
[2018-12-04] MEDS ORDERED: ZOLPIDEM TARTRATE 5 MG TAB PO PRN (20:00)
[2018-12-04] MEDS: ATORVASTATIN 40 MG TAB PO SCH (20:25)
[2018-12-05] VITALS (7 sets, daily range): BP systolic 122–154; BP diastolic 56–68
[2018-12-05 03:59] LABS: BASOPHILS % 0.3 % (0.0-1.0); EOSINOPHILS # (AUTO) 0.2 (0.0-0.4); EOSINOPHILS % 3.2 % (0.0-6.0); HEMATOCRIT 24.5 % (38.2-49.6); HEMOGLOBIN 8.3 g/dL (14.0-18.0); LYMPHOCYTES # (AUTO) 1.2 (1.0-3.2); LYMPHOCYTES % 18.7 % (18.0-39.1); MEAN CORPUSCULAR HEMOGLOBIN 28.6 pg (28-32); MEAN CORPUSCULAR HGB CONC 33.9 g/dL (31-35); MEAN CORPUSCULAR VOLUME 84.5 fL (81-99); MONOCYTES # (AUTO) 0.7 (0.2-0.8); MONOCYTES % 11.5 % (4.4-11.3); NEUTROPHILS # (AUTO) 4.1 (2.1-6.9); PLATELET COUNT 139 x10e3/uL (140-360); RED CELL DISTRIBUTION WIDTH 13.8 % (11.7-14.4)
--- NOTE | 2018-12-05 04:02 | Progress Note ---
DATE: 12/04/2018 Cardiology Progress Note SUBJECTIVE: No complaints today. OBJECTIVE: VITAL SIGNS: Temperature 97.7, heart rate 61, respiratory rate 18, blood pressure 141/68, O2 saturation 97% on room air. GENERAL: No acute distress. Alert. NECK: No JVD. CHEST: Clear to auscultation. CARDIOVASCULAR: Regular rate and rhythm. Normal S1, S2. ABDOMEN: Soft, nontender, nondistended. EXTREMITIES: Trace edema. MEDICATIONS: Cardiovascular medications reviewed: Atorvastatin 80 mg at bedtime, carvedilol 25 mg every 12 hours, hydralazine 50 mg t.i.d., amlodipine 10 mg daily, ferrous sulfate 325 mg daily, aspirin 81 mg daily. LABORATORY DATA: Studies reviewed: White blood cells 5.9, hemoglobin 8.4, platelets 144, and glucose 171. Telemetry, in sinus rhythm. ASSESSMENT: 1. End-stage renal disease. 2. Coronary artery disease status post coronary stents with angina pectoris. 3. Volume overload. 4. Diabetes mellitus. 5. Hypertension. 6. Morbid obesity. 7. Dyslipidemia. 8. Anemia. RECOMMENDATIONS: 1. Continue volume optimization and blood pressure optimization per Nephrology. 2. Continue current cardiovascular medications. 3. Anemia workup ongoing. 4. Further coronary evaluation depending on response to the initial optimization. Inocente Gentile MD AFKodak/MODL /[id number]
[2018-12-05 04:22] LABS: ANION GAP 10.2 mmol/L (8-16); CALCIUM 7.9 mg/dL (8.4-10.2); CREATININE, SERUM 3.56 mg/dL (0.72-1.25); MAGNESIUM 1.9 MG/DL (1.3-2.1); PHOSPHORUS 3.1 MG/DL (2.3-4.7); POTASSIUM 4.2 mmol/L (3.5-5.1)
--- NOTE | 2018-12-05 07:10 | NUR ---
PT RESTING IN BED AA0X3. PT IS NPO FOR SCHEDULED TUNNELED CATH TODAY. PT IS AWARE AND READY, CONSENT HAS BEEN SINGED. PT HAS A TEMP NON TUNNEL CATH TO THE RIGHT UPPER CHEST AREA, AREA IS CLEAN AND DRY. THIS IV ACCESS IS BEING USED FOR HD DURING ADMISSION. PT HAS A PERIPHERAL IV ACCESS TO THE RIGHT AC 20 SL PATENT AND CLEAN. PT IS AWARE OF PLAN OF CARE FOR TODAY. WILL CONTINUE TO MONITOR AT THIS TIME. SIDE RAILSX2, BED WHEELS LOCKED, CALL LIGHT IS WITHIN EASY REACH, INSTRUCTED TO CALL FOR ASSISTANCE IF NEEDED
--- NOTE | 2018-12-05 08:28 | NUR ---
SPOKE TO RADIOLOGY REGARDING PT SCHEDULED TUNNELED CATH. I WAS TOLD PT CANT HAVE PROCEDURE UNTIL PT IS OFF PLAVIX FOR 5 DAYS. GAVE RADIOLOGIST MD CHASE NUMBER TO NOTIFY HIM OF STATUS ON PROCEDURE.
[2018-12-05] MEDS: FLUTICASONE PROPIONATE NASAL SPRAY NS SCH ×2 (09:00→16:23)
[2018-12-05] MEDS: AMLODIPINE BESYLATE 10 MG TAB PO SCH (10:03)
[2018-12-05] MEDS: DOCUSATE SODIUM 100 MG CAP PO SCH ×2 (10:04→16:23)
[2018-12-05] MEDS: CARVEDILOL 12.5 MG TAB PO SCH ×2 (10:04→21:58)
[2018-12-05] MEDS: CHOLECALCIFEROL 1,000 UNIT TAB PO SCH (10:04)
[2018-12-05] MEDS: FERROUS SULFATE 325 MG TAB PO SCH (10:04)
[2018-12-05] MEDS: GLIPIZIDE 5 MG TAB PO SCH (10:04)
[2018-12-05] MEDS: HYDRALAZINE HCL 25 MG TAB PO SCH ×3 (10:04→21:58)
[2018-12-05] MEDS: FAMOTIDINE 20 MG TAB PO SCH ×2 (10:04→16:22)
[2018-12-05] MEDS: SODIUM BICARBONATE 650 MG TAB PO SCH ×2 (10:04→16:23)
[2018-12-05] MEDS: HYDROCODONE/APAP 5MG-325MG TAB PO PRN (10:18)
--- NOTE | 2018-12-05 11:01 | NUR ---
FAXING CLINIC[place] [facility] [place]
--- NOTE | 2018-12-05 13:07 | NUR ---
spoke with md myles states he has been out of town and return tomorrow, will see pt tomorrow if still here , or out for avf/peritoneal
[2018-12-05] MEDS: SERTRALINE HCL 50 MG TAB PO SCH (14:20)
[2018-12-05] MEDS: TEMAZEPAM 15 MG CAP PO SCH (21:58)
[2018-12-05] MEDS: ATORVASTATIN 40 MG TAB PO SCH (21:58)
[2018-12-06] VITALS (8 sets, daily range): BP systolic 126–164; BP diastolic 60–81
[2018-12-06] MEDS: LORAZEPAM 0.5 MG TAB PO PRN (03:06)
--- NOTE | 2018-12-06 03:18 | Progress Note ---
DATE: 12/05/2018 Cardiology Progress Note SUBJECTIVE: No complaints. OBJECTIVE: VITAL SIGNS: Temperature 97.1, heart rate 65, blood pressure 137/62, respiratory rate 18, and O2 saturation 98%. GENERAL: In no acute distress, alert. NECK: No JVD. CHEST: Clear to auscultation. CARDIOVASCULAR: Regular rate and rhythm. Normal S1 and S2. ABDOMEN: Soft. EXTREMITIES: Trace edema. MEDICATIONS: Cardiovascular medications reviewed. Clopidogrel, atorvastatin, hydralazine, carvedilol, aspirin. LABORATORY DATA: Studies reviewed. Potassium 4.2, bicarbonate 28, creatinine 3.5, hemoglobin 8.3, and platelets 139. ASSESSMENT: 1. Coronary artery disease, status post prior stents with angina pectoris. 2. Hypertension. 3. Dyslipidemia. 4. Diabetes mellitus. 5. End-stage renal disease, status post dialysis initiation. RECOMMENDATIONS: 1. Symptoms continue to improve on dialysis. 2. Shortness of breath on exertion, now seems to have resolved. He denies any chest pain. Continue current cardiovascular medications. Advised on outpatient stress test. MD KYUNG Salinas/MODL /[id number]
[2018-12-06 03:35] LABS: BASOPHILS % 0.4 % (0.0-1.0); EOSINOPHILS # (AUTO) 0.3 (0.0-0.4); EOSINOPHILS % 3.6 % (0.0-6.0); HEMATOCRIT 25.9 % (38.2-49.6); HEMOGLOBIN 8.9 g/dL (14.0-18.0); LYMPHOCYTES # (AUTO) 1.1 (1.0-3.2); LYMPHOCYTES % 15.1 % (18.0-39.1); MEAN CORPUSCULAR HEMOGLOBIN 28.7 pg (28-32); MEAN CORPUSCULAR HGB CONC 34.4 g/dL (31-35); MEAN CORPUSCULAR VOLUME 83.5 fL (81-99); MONOCYTES # (AUTO) 0.8 (0.2-0.8); MONOCYTES % 11.4 % (4.4-11.3); NEUTROPHILS # (AUTO) 4.9 (2.1-6.9); NEUTROPHILS % 68.8 % (38.7-80.0); PLATELET COUNT 126 x10e3/uL (140-360); RED CELL DISTRIBUTION WIDTH 13.8 % (11.7-14.4)
[2018-12-06 03:54] LABS: ANION GAP 12.5 mmol/L (8-16); CALCIUM 8.4 mg/dL (8.4-10.2); CREATININE, SERUM 4.95 mg/dL (0.72-1.25); MAGNESIUM 2.1 MG/DL (1.3-2.1); PHOSPHORUS 3.6 MG/DL (2.3-4.7); POTASSIUM 4.5 mmol/L (3.5-5.1)
--- NOTE | 2018-12-06 07:00 | NUR ---
bedside rounds complete no distress noted, updated on poc vocied understanding, denies pain at this time, daughter at bedside call light in reach will continue to monitor
--- NOTE | 2018-12-06 07:10 | Diagnostic Imaging Report ---
ADDENDUM #1 ADDENDUM: Ultrasound was utilized for vascular access. The right internal jugular vein is PATENT. A permanent ultrasound image was STORED to the medical record. Signed by: Dr. Ronak Monique DO on 12/09/2018 8:01 AM ORIGINAL REPORT Procedure: Non-tunneled hemodialysis catheter placement. Medications: Versed 2 mg intravenous, fentanyl 100 mcg intravenous. The patient's vital signs, including pulse oximetry, were continuously monitored by the interventional radiology nurse. Sedation time was 30 minutes or less. Fluoroscopy time: 0.5 minutes. Dose area product: 117.9 cGycm2 Contrast used: None Estimated blood loss: Less than 2 cc Complications: No immediate. Procedure in detail: Informed consent for the procedure was obtained from the patient after discussion of risks and benefits. The right neck was prepped and draped in the standard full barrier sterile fashion. 1% lidocaine was administered into the skin and subcutaneous tissues of the right lower neck for local anesthesia. Then, under continuous sonographic guidance, a 21-gauge micropuncture needle was advanced into the right internal jugular vein. A 0.018 " wire was advanced centrally under fluoroscopic guidance. A 0.035 " Amplatz superstiff wire was then advanced through the micropuncture sheath into the inferior vena cava under fluoroscopic guidance. A 12 Frisian 20 cm long Mahurkar temporary hemodialysis catheter was then placed. Each catheter lumen showed good bidirectional flow. Each lumen was then packed with 1,000 units of heparin. The catheter was secured to the skin with 3-0 monofilament nylon suture. Impression: 1. Successful placement of a non-tunneled dual-lumen hemodialysis catheter (12-Frisian, 20 cm long) by a right internal jugular approach. 2. The line is okay for immediate use. Signed by: Dr. Ronak Monique DO on 12/06/2018 7:06 AM
[2018-12-06] MEDS: FAMOTIDINE 20 MG TAB PO SCH ×2 (07:30→16:30)
[2018-12-06] MEDS: GLIPIZIDE 5 MG TAB PO SCH (07:30)
[2018-12-06] MEDS: AMLODIPINE BESYLATE 10 MG TAB PO SCH (09:00)
[2018-12-06] MEDS: HYDRALAZINE HCL 25 MG TAB PO SCH ×3 (09:00→21:52)
[2018-12-06] MEDS: FERROUS SULFATE 325 MG TAB PO SCH (09:00)
[2018-12-06] MEDS: CHOLECALCIFEROL 1,000 UNIT TAB PO SCH (09:00)
[2018-12-06] MEDS: SERTRALINE HCL 50 MG TAB PO SCH (09:00)
[2018-12-06] MEDS: CARVEDILOL 12.5 MG TAB PO SCH ×2 (09:00→21:52)
[2018-12-06] MEDS: DOCUSATE SODIUM 100 MG CAP PO SCH ×2 (09:00→17:00)
[2018-12-06] MEDS: SODIUM BICARBONATE 650 MG TAB PO SCH ×2 (09:00→17:00)
[2018-12-06] MEDS: FLUTICASONE PROPIONATE NASAL SPRAY NS SCH ×2 (10:00→17:00)
--- NOTE | 2018-12-06 12:56 | NUR ---
SPOKE WITH ROGER AT [facility] AND CONFIRMED SOCIAL SECURITY NUMBER, SHE STATES TENTATIVE CHAIR OF , AND [place] FOR 3RD SHIFT, WILL SEND CONFIRMATION LETTER FOR CHAIR WHEN IT IS CONFIRMED.
--- NOTE | 2018-12-06 14:55 | Progress Note ---
DATE: 12/06/2018 SUBJECTIVE: Shortness of breath at rest resolved. Denies any chest pain at rest or with exertion. Dyspnea on exertion is much improved, mild after walking for significant length of time in the halls, per the patient 30 minutes. OBJECTIVE: VITAL SIGNS: Temperature is 97.2, heart rate 76, blood pressure 154/72, respiratory rate 18, O2 saturation 98%. BMI 35. GENERAL: In no acute distress, alert. NECK: No JVD. CHEST: Clear to auscultation. CARDIOVASCULAR: Regular rate and rhythm. Normal S1 and S2. No S3 or S4. ABDOMEN: Soft. EXTREMITIES: No edema. CARDIOVASCULAR MEDICATIONS: Reviewed. Clopidogrel 75 mg daily, atorvastatin 80 mg at bedtime, amlodipine 10 mg daily, aspirin 81 mg daily, hydralazine 10 mg q.4 hours, and carvedilol 25 mg every 12 hours. LABORATORY DATA: Studies reviewed. Sodium 138, potassium 4.5, chloride 104, bicarbonate 26, BUN 37, creatinine 4.9, glucose 95. White blood cells 7.04, hemoglobin 8.9, platelets 126. INR 1.09. AST 11, ALT 15, total bilirubin 0.6, alkaline phosphatase 109. ASSESSMENT: A 58-year-old man presenting with renal failure, now declared end-stage renal disease, undergoing dialysis initiation. 1. Coronary artery disease with history of stents with stable angina pectoris. Overall improving symptomatically after initiation of dialysis. 2. Anemia, on iron supplementation. 3. Hypertension. 4. Dyslipidemia. 5. Diabetes mellitus type 2. RECOMMENDATIONS: Continue current cardiovascular medications and monitor blood pressure and symptomatic response to dialysis. Upon discharge, the patient advised to follow up in office within 4-6 weeks. At that time, further uptitration of antihypertensives and consideration for additional coronary assessment will be discussed. Inocente Gentile MD AFV/MODL /[id number]
--- NOTE | 2018-12-06 17:01 | Consultation ---
DATE OF CONSULTATION: 12/05/2018 Psychiatric Consultation The patient evaluated and events noted. REASON FOR CONSULTATION: To evaluate patient's depression and insomnia. HISTORY OF PRESENT ILLNESS: The patient is a 58-year-old male admitted to the hospital with dyspnea and end-stage renal disease. Psychiatric consultation is called to evaluate the patient's mood. As per medical record, the patient has history of hypertension, dyslipidemia, chronic kidney disease, diabetes, obesity, coronary artery disease. Upon evaluation today, the patient is found to be in the room. He is alert, awake, and oriented to situation. The patient is tearful and admits to feeling very depressed as he recently been ordered to be placed on dialysis. He claims his mom with the same medical disease. He admits to feeling hopeless and helpless. He denies suicidal or homicidal ideation. He denies any hallucination. He did complain of poor sleep and his appetite has been decreased as he is now on renal diet. PAST PSYCHIATRIC HISTORY: He denies past suicide attempts. He denies alcohol or drug use. FAMILY HISTORY: Denies. SOCIAL HISTORY: The patient said he lives with his family. MENTAL STATUS EXAM: The patient is middle aged male. He is alert, awake, and oriented to situation. Mood is depressed and anxious. Affect is congruent with mood. He denies suicidal, homicidal ideation. He denies any hallucination. Thought process is concrete. No delusion elicited. Insight and judgment are fair. Memory appears to be grossly intact. Psychomotor state is passive. CURRENT MEDICATIONS: 1. [place]. 2. Docusate. 3. Famotidine. 4. Ferrous sulfate. 5. Carvedilol. 6. Sodium bicarbonate. 7. Hydralazine. 8. Glipizide. 9. Vitamin D. 10. Amlodipine. 11. Ambien 10 mg p.o. at bedtime p.r.n. 12. Atorvastatin. 13. Acetaminophen. 14. Heparin. 15. Fluticasone. 16. Mannitol. 17. Sodium chloride. 18. Lactulose. 19. Polyethylene glycol. 20. Hydralazine. 21. Sodium chloride. 22. Ondansetron. LABORATORY DATA: Current labs: WBC 7.07, RBC 2.10, hemoglobin 8.9, hematocrit 25.9, platelets 126. Sodium 138, potassium 4.5, chloride 104, CO2 26, BUN 37, creatinine 4.95. ASSESSMENT: Adjustment disorder with mixed mood, depression, anxiety. PLAN: 1. Discontinue Ambien. 2. Add Zoloft 50 mg p.o. daily. 3. Add Temazepam 15 mg p.o. at bedtime. 4. Add Ativan 0.5 mg p.o. q.6 hours p.r.n. 5. Monitor for mood. 6. Supportive therapy. Thank you for this consultation. We will continue to follow the patient with you. Dictated by Emani Sharp PA-C Leah Frederick MD QTV/MODL /[id number]
[2018-12-06] MEDS ORDERED: MIDAZOLAM HCL 2 MG/2 ML VIAL ONE (18:17)
[2018-12-06] MEDS ORDERED: FENTANYL CITRATE/PF 100MCG/2 ML INJ ONE (18:17)
[2018-12-06] MEDS ORDERED: LIDOCAINE HCL 2% LOCAL 20 ML VIAL ONE (18:18)
[2018-12-06] MEDS ORDERED: SODIUM CHLORIDE 0.9% 1000ML 2,000 ML ONE (18:18)
[2018-12-06] MEDS ORDERED: SODIUM CHLORIDE 0.9% 50ML 50 ML ONE (19:06)
[2018-12-06] MEDS ORDERED: CEFAZOLIN SOD 1 GM VIAL ONE (19:06)
[2018-12-06] MEDS ORDERED: HEPARIN SOD (PORCINE) 1000 UNIT/ML SDV ONE (19:21)
--- NOTE | 2018-12-06 20:00 | NUR ---
RECEIVED FROM GUITAR INSTRUCTOR POST CVC TUNNELLED TO RIGHT CHEST. DRESSING INTACT. PATIENT IS ALERT AND ORIENTED. NO COMPLAINTS AT THIS TIME.
--- NOTE | 2018-12-06 20:15 | NUR ---
PAGED DR. CHASE FOR DIET ORDERS. WAITING FOR RESPONSE.
--- NOTE | 2018-12-06 20:17 | NUR ---
DR. ORR COVERING FOR DR. CHASE ORDERED TO RESUME PRE PROCEDURE DIET.
--- NOTE | 2018-12-06 20:18 | NUR ---
discard previous entry wrong time
--- NOTE | 2018-12-06 21:05 | NUR ---
PAGED DR. CHASE FOR THE SECOND TIME.
--- NOTE | 2018-12-06 21:17 | NUR ---
Dr fisher covering for Dr. Blas ordered to resume pre procedure diet.
[2018-12-06] MEDS: TEMAZEPAM 15 MG CAP PO SCH (21:52)
[2018-12-06] MEDS: ATORVASTATIN 40 MG TAB PO SCH (21:52)
[2018-12-07] VITALS (7 sets, daily range): BP systolic 107–142; BP diastolic 49–67
[2018-12-07] MEDS: LORAZEPAM 0.5 MG TAB PO PRN (01:11)
[2018-12-07 03:43] LABS: BASOPHILS % 0.3 % (0.0-1.0); EOSINOPHILS # (AUTO) 0.2 (0.0-0.4); EOSINOPHILS % 3.2 % (0.0-6.0); HEMATOCRIT 26.3 % (38.2-49.6); LYMPHOCYTES # (AUTO) 1.2 (1.0-3.2); LYMPHOCYTES % 17.6 % (18.0-39.1); MEAN CORPUSCULAR HEMOGLOBIN 28.7 pg (28-32); MEAN CORPUSCULAR HGB CONC 34.2 g/dL (31-35); MEAN CORPUSCULAR VOLUME 83.8 fL (81-99); MONOCYTES # (AUTO) 0.8 (0.2-0.8); MONOCYTES % 11.5 % (4.4-11.3); NEUTROPHILS # (AUTO) 4.4 (2.1-6.9); NEUTROPHILS % 67.1 % (38.7-80.0); PLATELET COUNT 137 x10e3/uL (140-360); RED BLOOD COUNT 3.14 x10e6/uL (4.3-5.7); RED CELL DISTRIBUTION WIDTH 13.8 % (11.7-14.4)
[2018-12-07 03:58] LABS: ANION GAP 13.2 mmol/L (8-16); CALCIUM 8.3 mg/dL (8.4-10.2); CREATININE, SERUM 4.23 mg/dL (0.72-1.25); MAGNESIUM 2.1 MG/DL (1.3-2.1); PHOSPHORUS 3.4 MG/DL (2.3-4.7); POTASSIUM 4.2 mmol/L (3.5-5.1)
[2018-12-07] MEDS: GLIPIZIDE 5 MG TAB PO SCH ×2 (07:30→13:34)
[2018-12-07] MEDS: HYDRALAZINE HCL 25 MG TAB PO SCH ×3 (09:00→20:33)
[2018-12-07] MEDS: DOCUSATE SODIUM 100 MG CAP PO SCH ×2 (09:00→16:24)
[2018-12-07] MEDS: AMLODIPINE BESYLATE 10 MG TAB PO SCH (09:00)
[2018-12-07] MEDS: FLUTICASONE PROPIONATE NASAL SPRAY NS SCH ×2 (10:30→16:25)
[2018-12-07] MEDS: CHOLECALCIFEROL 1,000 UNIT TAB PO SCH (10:45)
[2018-12-07] MEDS: CARVEDILOL 12.5 MG TAB PO SCH ×2 (10:45→20:34)
[2018-12-07] MEDS: FERROUS SULFATE 325 MG TAB PO SCH (10:45)
[2018-12-07] MEDS: SODIUM BICARBONATE 650 MG TAB PO SCH ×2 (10:45→16:25)
[2018-12-07] MEDS: SERTRALINE HCL 50 MG TAB PO SCH (10:45)
[2018-12-07] MEDS: CLOPIDOGREL BISULFATE 75 MG TAB PO SCH (10:45)
[2018-12-07] MEDS: FAMOTIDINE 20 MG TAB PO SCH ×2 (10:45→16:24)
[2018-12-07] MEDS: ASPIRIN 81 MG CHEW TAB PO SCH (10:45)
[2018-12-07] MEDS: ATORVASTATIN 40 MG TAB PO SCH (20:34)
[2018-12-07] MEDS: TEMAZEPAM 15 MG CAP PO SCH (20:34)
--- NOTE | 2018-12-07 22:22 | Progress Note ---
DATE: 12/07/2018 Cardiology Progress Note SUBJECTIVE: No complaints. OBJECTIVE: VITAL SIGNS: Temperature 97.8, heart rate 62, blood pressure 141/67, respiratory rate 18, O2 saturation 95%. BMI 33. GENERAL: In no acute distress. Alert. NECK: No JVD. CHEST: Clear to auscultation. CARDIOVASCULAR: Regular rate and rhythm. Normal S1 and S2. No S3 or S4. ABDOMEN: Soft. EXTREMITIES: Trace edema. CARDIOVASCULAR MEDICATIONS: Ferrous sulfate 325 mg daily, atorvastatin 80 mg at bedtime, amlodipine 10 mg daily, aspirin 81 mg daily, hydralazine 50 mg t.i.d., carvedilol 25 mg every 12 hours. LABORATORY DATA: Studies reviewed. Sodium 138, potassium 4.2, chloride 102, bicarbonate 27, BUN 23, creatinine 4.2, glucose 141. White blood cells 6.5, hemoglobin 9, platelets are 137. INR 1.09. AST 11, ALT 15. ASSESSMENT: 1. End-stage renal disease. 2. Pwbdn-pm-wjbumpd diastolic heart failure. 3. Coronary artery disease with history of stents and angina pectoris. 4. Hypertension. 5. Diabetes mellitus. 6. Dyslipidemia. RECOMMENDATIONS: 1. Continue current cardiovascular medications. 2. Monitor H and H. 3. Outpatient followup for consideration of further coronary evaluation depending on persistence of symptoms. MD KYUNG Salinas/JUSTIN /[id number]
[2018-12-08] VITALS (8 sets, daily range): BP systolic 109–146; BP diastolic 56–67
[2018-12-08] MEDS: LORAZEPAM 0.5 MG TAB PO PRN (04:00)
[2018-12-08 04:31] LABS: BASOPHILS % 0.1 % (0.0-1.0); EOSINOPHILS # (AUTO) 0.2 (0.0-0.4); EOSINOPHILS % 2.7 % (0.0-6.0); HEMATOCRIT 26.7 % (38.2-49.6); HEMOGLOBIN 9.1 g/dL (14.0-18.0); LYMPHOCYTES # (AUTO) 1.2 (1.0-3.2); LYMPHOCYTES % 16.1 % (18.0-39.1); MEAN CORPUSCULAR HEMOGLOBIN 28.4 pg (28-32); MEAN CORPUSCULAR HGB CONC 34.1 g/dL (31-35); MEAN CORPUSCULAR VOLUME 83.4 fL (81-99); MONOCYTES # (AUTO) 0.8 (0.2-0.8); MONOCYTES % 10.7 % (4.4-11.3); NEUTROPHILS # (AUTO) 5.2 (2.1-6.9); PLATELET COUNT 143 x10e3/uL (140-360); RED CELL DISTRIBUTION WIDTH 13.6 % (11.7-14.4)
[2018-12-08 04:47] LABS: ANION GAP 14.2 mmol/L (8-16); CALCIUM 8.6 mg/dL (8.4-10.2); CREATININE, SERUM 5.7 mg/dL (0.72-1.25); MAGNESIUM 2.2 MG/DL (1.3-2.1); PHOSPHORUS 3.7 MG/DL (2.3-4.7); POTASSIUM 4.2 mmol/L (3.5-5.1)
[2018-12-08] MEDS: INSULIN LISPRO 100 UNIT/1 ML 3ML VIAL SQ SCH ×4 (07:30→21:00)
[2018-12-08] MEDS ORDERED: DEXTROSE 50% SYRINGE 50 ML IV PRN (07:30)
--- NOTE | 2018-12-08 08:13 | Diagnostic Imaging Report ---
CT BRAIN WO HISTORY: Dizziness COMPARISON: None. Technique: Noncontrast axial scans were obtained from skull base to the vertex. Coronal and sagittal reconstructions obtained from the axial data. One or more of the following dose reduction techniques were used: Automated exposure control, adjustment of the mA and/or kV according to patient size, and/or utilization of iterative reconstruction technique. DISCUSSION: Scalp/Skull: Unremarkable. Brain sulci: Mildly prominent. Ventricles: Compensatory dilatation. Extra-axial spaces: No masses or fluid collections. Carotid siphon calcifications are present. Parenchyma: Mild bilateral deep white matter hypodensity is likely chronic microvascular ischemic change. Otherwise, no masses, hemorrhage, or large vascular territory acute infarct. Dural sinuses: No abnormal densities. Sellar/Suprasellar region: Intact. Skull base: Intact. Incidental findings: None. IMPRESSION: 1. No acute intracranial abnormalities. 2. Mild supratentorial chronic microvascular ischemic change. Mild generalized cerebral volume loss. Signed by: Dr. Isidoro Archer M.D. on 12/08/2018 8:10 AM
[2018-12-08] MEDS: FERROUS SULFATE 325 MG TAB PO SCH (09:50)
[2018-12-08] MEDS: HYDRALAZINE HCL 25 MG TAB PO SCH ×3 (09:50→21:04)
[2018-12-08] MEDS: DOCUSATE SODIUM 100 MG CAP PO SCH ×2 (09:50→16:45)
[2018-12-08] MEDS: SODIUM BICARBONATE 650 MG TAB PO SCH ×2 (09:50→16:45)
[2018-12-08] MEDS: FAMOTIDINE 20 MG TAB PO SCH ×2 (09:50→16:45)
[2018-12-08] MEDS: SERTRALINE HCL 50 MG TAB PO SCH (09:50)
[2018-12-08] MEDS: ASPIRIN 81 MG CHEW TAB PO SCH (09:50)
[2018-12-08] MEDS: CHOLECALCIFEROL 1,000 UNIT TAB PO SCH (09:50)
[2018-12-08] MEDS: CARVEDILOL 12.5 MG TAB PO SCH ×2 (09:50→21:05)
[2018-12-08] MEDS: CLOPIDOGREL BISULFATE 75 MG TAB PO SCH (09:50)
[2018-12-08] MEDS: FLUTICASONE PROPIONATE NASAL SPRAY NS SCH ×2 (09:50→17:00)
[2018-12-08] MEDS: AMLODIPINE BESYLATE 10 MG TAB PO SCH (09:50)
[2018-12-08] MEDS: HYDROCODONE/APAP 5MG-325MG TAB PO PRN (18:41)
[2018-12-08] MEDS: ATORVASTATIN 40 MG TAB PO SCH (21:05)
[2018-12-08] MEDS: TEMAZEPAM 15 MG CAP PO SCH (21:05)
--- NOTE | 2018-12-08 22:37 | Progress Note ---
DATE: 12/08/2018 Cardiology Progress Note SUBJECTIVE: No complaints. OBJECTIVE: VITAL SIGNS: Temperature 96.7, heart rate 60, respiratory rate 16, blood pressure 126/60, O2 saturation 98%, BMI 33. GENERAL: In no acute distress. Alert. NECK: No JVD. CHEST: Clear to auscultation. CARDIOVASCULAR: Regular rate and rhythm. Normal S1 and S2. ABDOMEN: Soft. EXTREMITIES: Trace edema. CARDIOVASCULAR MEDICATIONS: 1. Aspirin 81 mg daily. 2. Amlodipine 10 mg daily. 3. Hydralazine 10 mg every 4 hours IV and 50 mg t.i.d. p.o. 4. Carvedilol 25 mg every 12 hours. 5. Atorvastatin 80 mg at bedtime. LABORATORY DATA: Studies reviewed. Potassium 4.2, creatinine 5.7. White blood cell 7.4, hemoglobin 9.1, platelets 141. INR 1. ASSESSMENT: 1. A 58-year-old man presenting with new diagnosis of end-stage renal disease, now status post initiation of dialysis. 2. Coronary artery disease, status post stents with stable angina pectoris, symptomatic improvement with dialysis. 3. Hypertension. 4. Dyslipidemia. 5. Morbid obesity. 6. Anemia. RECOMMENDATIONS: 1. Continue current cardiovascular medications. 2. Outpatient followup for consideration of further coronary risk stratification. MD KYUNG Salinas/MINESHL /[id number]
[2018-12-09] VITALS (7 sets, daily range): BP systolic 106–158; BP diastolic 56–72
[2018-12-09] MEDS: LORAZEPAM 0.5 MG TAB PO PRN (03:28)
[2018-12-09 03:49] LABS: BASOPHILS % 0.3 % (0.0-1.0); EOSINOPHILS # (AUTO) 0.2 (0.0-0.4); EOSINOPHILS % 3.3 % (0.0-6.0); HEMATOCRIT 25.8 % (38.2-49.6); LYMPHOCYTES # (AUTO) 1.4 (1.0-3.2); LYMPHOCYTES % 19.4 % (18.0-39.1); MEAN CORPUSCULAR HGB CONC 34.9 g/dL (31-35); MEAN CORPUSCULAR VOLUME 83.2 fL (81-99); MONOCYTES # (AUTO) 0.8 (0.2-0.8); MONOCYTES % 11.2 % (4.4-11.3); NEUTROPHILS # (AUTO) 4.7 (2.1-6.9); NEUTROPHILS % 65.2 % (38.7-80.0); PLATELET COUNT 145 x10e3/uL (140-360); RED CELL DISTRIBUTION WIDTH 13.9 % (11.7-14.4)
[2018-12-09 04:03] LABS: ANION GAP 14.2 mmol/L (8-16); CALCIUM 8.4 mg/dL (8.4-10.2); CREATININE, SERUM 6.76 mg/dL (0.72-1.25); POTASSIUM 4.2 mmol/L (3.5-5.1)
--- NOTE | 2018-12-09 07:10 | NUR ---
PT RESTING IN BED AA0X3. PT IS IN NO S.S OF DISTRESS. DENIES PAIN. PT HAS A RIGHT TUNNELED CATH TO THE RIGHT CHEST FOR HD ACCESS. PT IS TO GET HD TODAY. DAYS ARE M, W,F. DIALYSIS CHAIR PENDING FOR DC. PT HAS A RIGHT AC 20 SL PATENT AND DRY. WILL CONTINUE TO MONITOR PT AT THIS TIME. SIDE RAILSX2, BED WHEELS LOCKED ,CALL LIGHT IS WITHIN EASY REACH, INSTRUCTED TO CALL FOR ASSISTANCE IF NEEDED
[2018-12-09] MEDS: INSULIN LISPRO 100 UNIT/1 ML 3ML VIAL SQ SCH ×4 (07:30→21:00)
[2018-12-09] MEDS: FAMOTIDINE 20 MG TAB PO SCH ×2 (08:22→17:08)
[2018-12-09] MEDS: FLUTICASONE PROPIONATE NASAL SPRAY NS SCH ×2 (08:22→16:00)
[2018-12-09] MEDS: ASPIRIN 81 MG CHEW TAB PO SCH (08:22)
[2018-12-09] MEDS: DOCUSATE SODIUM 100 MG CAP PO SCH ×2 (08:22→17:08)
[2018-12-09] MEDS: HYDRALAZINE HCL 25 MG TAB PO SCH ×3 (08:22→21:00)
[2018-12-09] MEDS: CARVEDILOL 12.5 MG TAB PO SCH ×2 (08:22→21:00)
[2018-12-09] MEDS: SODIUM BICARBONATE 650 MG TAB PO SCH ×2 (08:23→17:08)
[2018-12-09] MEDS: AMLODIPINE BESYLATE 10 MG TAB PO SCH (08:23)
[2018-12-09] MEDS: FERROUS SULFATE 325 MG TAB PO SCH (08:23)
[2018-12-09] MEDS: CLOPIDOGREL BISULFATE 75 MG TAB PO SCH (08:23)
[2018-12-09] MEDS: SERTRALINE HCL 50 MG TAB PO SCH (08:23)
[2018-12-09] MEDS: CHOLECALCIFEROL 1,000 UNIT TAB PO SCH (08:23)
[2018-12-09] MEDS ORDERED: HEPARIN SOD (PORCINE) 1000 UNIT/ML SDV IV PRN (13:15)
[2018-12-09] MEDS ORDERED: ALBUMIN 25% 12.5GM 0.25 GM/ML BTL IV PRN (13:15)
--- NOTE | 2018-12-09 13:31 | Progress Note ---
DATE: 12/09/2018 Cardiology Progress Note SUBJECTIVE: No complaints today. Likely dialysis later this afternoon. OBJECTIVE: VITAL SIGNS: Reviewed and stable. Heart rate 88, blood pressure 142/80, respiratory rate 18, O2 saturation 98%. GENERAL: No acute distress, alert. NECK: No JVD. CHEST: Clear to auscultation. CARDIOVASCULAR: Regular rate and rhythm. Normal S1, S2. No S3, no S4. ABDOMEN: Soft. EXTREMITIES: Trace edema. CARDIOVASCULAR MEDICATIONS: Reviewed. Aspirin 81 mg daily, carvedilol 25 mg every 12 hours, atorvastatin 80 mg at bedtime, hydralazine 50 mg every 8 hours, and amlodipine 10 mg daily. LABORATORY DATA: Studies reviewed. BNP 72. White blood cells 7.2, hemoglobin 9, platelets 145. Potassium 4.2, bicarbonate 26, and creatinine 6.7. ASSESSMENT: 1. End-stage renal disease. 2. Coronary artery disease with history of stents. 3. Hypertension and dyslipidemia. RECOMMENDATIONS: Continue current cardiovascular medications. Outpatient followup once dialysis chair arranged advised from a Cardiology standpoint within the following 4 to 6 weeks. MD KYUNG Salinas/JUSTIN /[id number]
--- NOTE | 2018-12-09 15:36 | NUR ---
FAXED ALL NOTES FROM DR MATHEW , TREATMENT SHEET, AND CATH PLACEMENT.
--- NOTE | 2018-12-09 20:00 | NUR ---
INITIAL ASSESSMENT COMPLETE, CALL LIGHT IN REACH, FAMILY AT BEDSIDE, DIALYSIS TODAY, REMOVED 3L, TELE ON PT #12, DRESSING TO RIGHT CHEST WALL INTACT, PT STATES HE IS A LITTLE DIZZY WHEN AMBULATING, VS STABLE,
[2018-12-09] MEDS ORDERED: TEMAZEPAM 15 MG CAP PO SCH (21:00)
[2018-12-09] MEDS: ATORVASTATIN 40 MG TAB PO SCH (21:00)
[2018-12-10 00:22] VITALS: BP 95/54
--- NOTE | 2018-12-10 00:30 | NUR ---
vs stable, sleeping meds given, no distress noted, tele on pt, call light in reach
[2018-12-10] MEDS: LORAZEPAM 0.5 MG TAB PO PRN (01:05)
[2018-12-10] MEDS: ACETAMINOPHEN 325 MG TAB PO PRN (01:05)
[2018-12-10 04:00] VITALS: BP 133/68
[2018-12-10 05:24] LABS: BASOPHILS % 0.4 % (0.0-1.0); EOSINOPHILS # (AUTO) 0.3 (0.0-0.4); EOSINOPHILS % 3.3 % (0.0-6.0); HEMATOCRIT 27.4 % (38.2-49.6); HEMOGLOBIN 9.5 g/dL (14.0-18.0); LYMPHOCYTES # (AUTO) 1.6 (1.0-3.2); LYMPHOCYTES % 20.8 % (18.0-39.1); MEAN CORPUSCULAR HGB CONC 34.7 g/dL (31-35); MEAN CORPUSCULAR VOLUME 83.5 fL (81-99); MONOCYTES # (AUTO) 0.9 (0.2-0.8); MONOCYTES % 11.5 % (4.4-11.3); NEUTROPHILS % 63.7 % (38.7-80.0); PLATELET COUNT 163 x10e3/uL (140-360); RED BLOOD COUNT 3.28 x10e6/uL (4.3-5.7); RED CELL DISTRIBUTION WIDTH 13.7 % (11.7-14.4)
--- NOTE | 2018-12-10 05:30 | NUR ---
pt in bed, vs stable, no distress noted
[2018-12-10 05:51] LABS: ANION GAP 14.2 mmol/L (8-16); CALCIUM 9.1 mg/dL (8.4-10.2); CREATININE, SERUM 5.16 mg/dL (0.72-1.25); MAGNESIUM 2.1 MG/DL (1.3-2.1); POTASSIUM 4.2 mmol/L (3.5-5.1)
--- NOTE | 2018-12-10 07:15 | NUR ---
pt resting in bed aa0x3. pt is in no s.s of distress. denies pain . pt is aware of plan of care today. waiting on chair set up for outpatient hd. home planning consultant salesperson tawanna has rounded and states when set up call for dc order. right ac 20 sl and a right upper chest tunnelled cath, dressing dry and intact. will continue to monitor pt at this time. side railsx2, bed wheels locked, call light is within easy reach, instructed to call for assistance if needed
[2018-12-10] MEDS: INSULIN LISPRO 100 UNIT/1 ML 3ML VIAL SQ SCH ×2 (07:30→12:18)
[2018-12-10 07:53] VITALS: BP 155/72
[2018-12-10] MEDS ORDERED: ZOLOFT50 MG PO (08:03)
[2018-12-10] MEDS ORDERED: AMBIEN10 MG PO (08:03)
[2018-12-10] MEDS ORDERED: ATIVAN0.5 MG PO (08:03)
[2018-12-10 08:47] VITALS: BP 155/72
[2018-12-10] MEDS: FERROUS SULFATE 325 MG TAB PO SCH (08:47)
[2018-12-10] MEDS: FLUTICASONE PROPIONATE NASAL SPRAY NS SCH (08:47)
[2018-12-10] MEDS: ASPIRIN 81 MG CHEW TAB PO SCH (08:47)
[2018-12-10] MEDS: DOCUSATE SODIUM 100 MG CAP PO SCH (08:47)
[2018-12-10] MEDS: CARVEDILOL 12.5 MG TAB PO SCH (08:47)
[2018-12-10] MEDS: FAMOTIDINE 20 MG TAB PO SCH (08:47)
[2018-12-10] MEDS: HYDRALAZINE HCL 25 MG TAB PO SCH (08:47)
[2018-12-10] MEDS: SODIUM BICARBONATE 650 MG TAB PO SCH (08:48)
[2018-12-10] MEDS: CHOLECALCIFEROL 1,000 UNIT TAB PO SCH (08:48)
[2018-12-10] MEDS: SERTRALINE HCL 50 MG TAB PO SCH (08:48)
[2018-12-10] MEDS: CLOPIDOGREL BISULFATE 75 MG TAB PO SCH (08:48)
[2018-12-10] MEDS: AMLODIPINE BESYLATE 10 MG TAB PO SCH (08:48)
[2018-12-10 11:55] VITALS: BP 142/66
--- NOTE | 2018-12-10 11:55 | NUR ---
MD CHASE HAS DC PATIENT AT THIS TIME
--- NOTE | 2018-12-10 12:40 | NUR ---
PT OFF UNIT TO HOME VIA WHEEL CHAIR AT THIS TIME
--- NOTE | 2018-12-10 12:54 | NUR ---
SPOKE WITH EMIGDIO FERNANDES LETTER FOR PATIENT HE IS SCHEDULED FOR , AND SATURDAYS AT 6PM, LETTER GIVEN TO PT ABOUT WHERE TO GO AND WHEN TO BE THERE, HE WILL DISCUSS A DIFFERENT TIME WITH THEM TO MAKE ACCOMMODATING WITH THEM. ALERTED NURSE THAT PT WAS READY FOR DISCHARGE FROM [facility].
--- NOTE | 2018-12-10 16:27 | Progress Note ---
DATE: 12/10/2018 Psychiatric Progress Note SUBJECTIVE: The patient is in the room with . He is alert, awake, and oriented to situation. He is intermittently depressed, but denies any suicidal ideation. He denies any hallucination. He states that he is less anxious. The patient continued to have poor sleep and poor appetite. MENTAL STATUS EXAM: The patient is a middle-aged male. He is alert, awake, and oriented to situation. Mood is anxious and depressed. Denies any suicidal or homicidal ideation. Denies any hallucination. Thought process is concrete. No delusion elicited. Affect is improving with mood. Insight and judgment are fair. Memory appears to be grossly intact. ASSESSMENT: Adjustment disorder with mixed mood with anxiety and depression. PLAN: 1. Start Ambien p.r.n. 2. Continue Zoloft 50 mg p.o. daily. 3. Discontinue temazepam p.r.n. 4. Continue Ativan 0.5 mg p.o. q.6 hours p.r.n. 5. Monitor for mood. 6. Supportive therapy. Dictated by Emani Sharp PA-C Fabio Mcdonald MD QTV/JUSTIN /[id number]
[2018-12-10] MEDS ORDERED: ZOLPIDEM TARTRATE 10 MG TAB PO PRN (21:00)
--- NOTE | 2018-12-11 03:05 | Discharge Summary ---
ADMISSION DIAGNOSES: Coronary artery disease with history of PCI with angina, acute kidney lkenev-mv-whmzoix kidney disease versus chronic kidney disease 5 and end-stage renal disease, anemia, hyperlipidemia, hypertension complicated by chronic kidney disease and coronary artery disease, type 2 diabetes complicated by chronic kidney disease. DISCHARGE DIAGNOSES: Coronary artery disease with history of PCI with angina, acute kidney zevorr-bm-cbcdmju kidney disease versus chronic kidney disease 5 and end-stage renal disease, anemia, hyperlipidemia, hypertension complicated by chronic kidney disease and coronary artery disease, type 2 diabetes complicated by chronic kidney disease. Rule out GI bleed. Rule out transient ischemic attack and cerebrovascular accident. HISTORY: The patient has a history of hypertension, hyperlipidemia, CKD, 4, type 2 diabetes, CAD, morbid obesity, and [place]. SURGICAL HISTORY: ACDF, C4-C5, L-spine bone spur, PCI in 2016, and right rotator cuff repair. FAMILY HISTORY: The patient's mom and dad have diabetes. The patient's father has mesothelioma. SOCIAL HISTORY: The patient admits to smoking tobacco two packs a day for five years. He denies alcohol or illicit drug use. HOSPITAL COURSE: A 58-year-old male presents with progressive shortness of breath, orthopnea, bilateral leg edema, and chest discomfort. On admission, chest x-ray showed no acute thoracic abnormality. Echo showed an EF of 65%. Per Nephrology recommendation, the patient had a right IJ temporary dialysis catheter placed for immediate use. Prior to discharge, the patient had a tunneled catheter placed in the right IJ. Because of dizziness and weakness, the patient had a CAT scan of the brain, which was negative. Carotid Doppler was also negative. The patient attempted to have AV fistula placed per Nephrology recommendation, but unable to get a hold of Dr. Shahid prior to discharge. The patient will be discharged home with outpatient dialysis arranged. Vital signs stable. The patient afebrile. The patient was started on Ambien, Zoloft, and lorazepam per psych recommendation for insomnia and anxiety. The patient will follow up with primary care in 1 to 2 weeks and Nephrology in 1 to 2 weeks. The patient and understand discharge instructions and agree to plan. Maryam Williamson NP BRIAN/MODL /[id number]
== END 2018-12-10 12:40 | disposition home or self-care (01) | DRG 291 ==
LOC: ER 14:34 → ERHOLD 17:11 → MED/SURG 19:12
PROVIDERS: ADMIT Internal Medicine; ATTEND Internal Medicine
PROC: 02HV33Z Insertion of Infusion Device into Superior Vena Cava, Percutaneous Approach (ICD-10-PCS; principal; 2018-12-02)
PROC: 5A1D70Z Performance of Urinary Filtration, Intermittent, Less than 6 Hours Per Day (ICD-10-PCS; 2018-12-02)
PROC: 5A1D70Z Performance of Urinary Filtration, Intermittent, Less than 6 Hours Per Day (ICD-10-PCS; 2018-12-03)
PROC: 5A1D70Z Performance of Urinary Filtration, Intermittent, Less than 6 Hours Per Day (ICD-10-PCS; 2018-12-04)
PROC: 02HV33Z Insertion of Infusion Device into Superior Vena Cava, Percutaneous Approach (ICD-10-PCS; 2018-12-06)
PROC: 5A1D70Z Performance of Urinary Filtration, Intermittent, Less than 6 Hours Per Day (ICD-10-PCS; 2018-12-06)
PROC: 5A1D70Z Performance of Urinary Filtration, Intermittent, Less than 6 Hours Per Day (ICD-10-PCS; 2018-12-09)
DX: I13.2 Hypertensive heart and chronic kidney disease with heart failure and with stage 5 chronic kidney disease, or end stage renal disease (principal); N18.6 End stage renal disease; I50.33 Acute on chronic diastolic (congestive) heart failure; N17.9 Acute kidney failure, unspecified; I25.119 Atherosclerotic heart disease of native coronary artery with unspecified angina pectoris; E11.22 Type 2 diabetes mellitus with diabetic chronic kidney disease; Z99.2 Dependence on renal dialysis; Z79.4 Long term (current) use of insulin; E78.5 Hyperlipidemia, unspecified; F17.210 Nicotine dependence, cigarettes, uncomplicated; R60.0 Localized edema; F43.23 Adjustment disorder with mixed anxiety and depressed mood; Z79.899 Other long term (current) drug therapy; D63.1 Anemia in chronic kidney disease; E66.01 Morbid (severe) obesity due to excess calories; Z68.32 Body mass index [BMI] 32.0-32.9, adult; G47.00 Insomnia, unspecified; Z98.1 Arthrodesis status
CPT/HCPCS: 36415; 36558; 70450; 71046; 74470; 80048; 80053; 80061; 81050; 82270; 82575; 82948; 83036; 83735; 83880; 84100; 84156; 84443; 84484; 85025; 85379; 85610; 85730; 86704; 86705; 86706; 86803; 87340; 90962; 93005; 93306; 93880; 97139; 99284; C1769; J0360; J0690; J1644; J1940; J2001; J2150; J2250; J7030; J7040; Q4081